=== PATIENT | male | born 1950 | race Caucasian/White ===

== ENCOUNTER → 2017-09-23 | Outpatient (CLI) | payer MEDICARE, BC ==
--- NOTE | 2017-09-23 15:30 | XR ---
EXAMINATION TYPE: XR chest 2V DATE OF EXAM: 09/23/2017 COMPARISON: NONE HISTORY: Shortness of breath TECHNIQUE: Frontal and lateral views of the chest are obtained. FINDINGS: Scattered senescent parenchymal changes noted. Hyperinflation compatible with COPD. Pacer device in p lace. Patchy basilar infiltrates noted. No evidence for atelectasis. Heart size is stable. Mediastinal structures are stable and grossly unremarkable. No evidence for hilar prominence. Degenerative changes dorsal spine. IMPRESSION: 1. Correlate for basilar pneumonia.
== END | disposition home or self-care (01) ==
LOC: RADXRMAIN 15:03
PROVIDERS: ATTEND Internal Medicine
DX: D75.1 Secondary polycythemia (principal)
CPT/HCPCS: 71046

== ENCOUNTER → 2017-10-29 | Outpatient (CLI) | payer MEDICARE, BC | END | disposition home or self-care (01) | LOC: CPPFTMAIN 14:16 | PROVIDERS: ATTEND Internal Medicine | DX: J44.9 Chronic obstructive pulmonary disease, unspecified (principal) | CPT/HCPCS: 94060; 94726; 94729 ==

== ENCOUNTER → 2021-12-13 | Outpatient (CLI) | payer MEDICARE ==
--- NOTE | 2021-12-13 19:27 | CTL ---
EXAMINATION TYPE: CT Low Dose Lung DATE OF EXAM ORDERED: 12/13/2021 HISTORY: Lung cancer screening CT DLP: 167.[address] CTDI: 4.30 mGy Automated exposure control for dose reduction was used. SCREENING VISIT: Initial COMPARISON: Chest radiograph 09/23/2017 TECHNIQUE: Low dose computed tomography scan was performed through the chest at 1 mm thick sections a nd reconstructed images in multiple planes at 1 mm and [address] DIAGNOSTIC QUALITY: Satisfactory FINDINGS: LUNG NODULES: Cavitating masses seen within the Left upper lobe with thick ybarra measuring at least 4.8 x 4.1 x 3.3 cm. Thick ybarra measuring up to 2 .1 cm. Left lower lobe 13 mm pulmonary nodule series 13 image 121 Right upper lobe demonstrates a branching tubular area of increased opacity that extends from the hil um with surrounding hyperlucent lung parenchyma LUNGS : COPD: Severity: Mild centrilobular emphysema changes. Fibrosis: Severity: None Lymph nodes: No enlarged mediastinal lymph nodes are identified. Other findings: Streaky atelectasis bases. RIGHT PLEURAL SPACE: Effusion: None Calcification: None Thickening: None Pneumothorax: None LEFT PLEURAL SPACE: Effusion: None Calcification: None Thickening: None Pneumothorax: None HEART: Heart Size: Normal Coronary Calcification: Moderate Pericardial Effusion: None OTHER FINDINGS: Upper abdomen: Postsurgical changes to the stomach and distal esophagus. Bony thorax: None Supraclavicular region: None Other: Cardiac conduction device seen with tips terminating in the right ventricle and right atrium. IMPRESSION: 1. Left upper lobe cavitating lesion suspicious for malignancy with central necrosis. Further workup is recommended. 2. Left lower lobe 13 mm pulmonary nodule. This should be further worked up with #1. 3. 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 CT LUNG RAD AND CT CHEST RECOMMENDATION: Lung-Rad 4B or 4X Very Suspicious: Follow-up Chest CT with o r without contrast or PET/CT and/or tissue sampling. PET/CT may be used when there is a > 8 mm solid component. S Modifier (other clinically significant findings): S, moderate coronary artery atherosclerosis.
== END | disposition home or self-care (01) ==
LOC: RADCTMAIN 16:03
PROVIDERS: ATTEND Internal Medicine Hematology & Oncology
DX: Z12.2 Encounter for screening for malignant neoplasm of respiratory organs (principal); I25.10 Atherosclerotic heart disease of native coronary artery without angina pectoris; Z87.891 Personal history of nicotine dependence
CPT/HCPCS: 71271

== ENCOUNTER 2021-12-28 12:51 | Day surgery (SDC) | payer MEDICARE ==
[2021-12-27 12:00] VITALS: BMI 44.1
[~2021-12-28 12:51] MED LIST: ALBUTEROL NEB (CONC) 2.5 MG/0.5 ML INHALATION ONE; LIDOCAINE 2% (PF) 20 MG/ML 5 ML VIAL INHALATION ONE; LIDOCAINE VISCOUS 300 MG/15 ML CUP MUCOUS MEM ONE; SODIUM CHLORIDE 0.9% 1,000 ML IV SCH
[2021-12-28 13:48] LABS: Glucose,Whole Blood 181 mg/dL (70-110)
[2021-12-28] MEDS ORDERED: PHENYLEPHRINE-0.9% NACL SYG 1,000 MCG/10 ML SYRINGE ONE (14:43)
[2021-12-28] MEDS ORDERED: SUCCINYLCHOLINE CHLORIDE 200 MG/10 ML VIAL IV ONE (14:43)
[2021-12-28] MEDS ORDERED: LIDOCAINE 2% INJ 20 MG/ML (2 ML VIAL) ONE (14:43)
[2021-12-28] MEDS ORDERED: MIDAZOLAM 2 MG/2 ML VIAL ONE (14:43)
[2021-12-28] MEDS ORDERED: fentaNYL (PF) 50 MCG/ML 2 ML AMP ONE (14:43)
[2021-12-28] MEDS ORDERED: ETOMIDATE 2 MG/ML 10 ML VIAL ONE (14:43)
--- NOTE | 2021-12-28 14:46 | CT ---
EXAMINATION TYPE: CT Chest conner Cm Protocol DATE OF EXAM: 12/28/2021 COMPARISON: CT 12/13/2021 HISTORY: pre-op bronch CT DLP: 1059.8 mGycm Automated exposure control for dose reduction was used. Helical imaging through the chest for procedu re planning purposes. FINDINGS: Lack of contrast could compromise sensitivity. Cavitary mass in the left upper lobe shows a pleural based margin is again noted. There are areas of probable scarring at the lingula and right upper lobe similar to prior exam. There is no pleural hector cardial effusion. Left lower lobe nodular area of increased attenuation is again seen, stable. Emphys ematous changes are again noted within the lungs, the abnormal configuration seen in the right upper lobe described in prior report shows a similar appearance. There is a generator in the left pectoral region, leads coursing to the right atrium and right ventri surya. Coronary artery calcification is present. No mediastinal, axillary, or hilar adenopathy. No evident adrenal mass. Patient is post cholecystectomy. Postop changes are noted to the stomach. 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
--- NOTE | 2021-12-28 15:50 | P.PCN ---
Date of Procedure: 12/28/21 Preoperative Diagnosis: Left hilar mass Postoperative Diagnosis: 1 left upper lobe cavitating mass 2 lingular pulmonary infiltrates Procedure(s) Performed: 1 Navigational bronchoscopy (Veran) 2 transbronchial biopsy of left upper lobe cavitating mass, transbronchial biopsy of a lingular infiltrate, transbronchial needle aspirate of a left upper lobe cavitating mass, transbronchial brushing of the left upper lobe cavitating mass, bronchioloalveolar lavage of the left upper lobe 3 endobronchial radial ultrasound Anesthesia: LARISAA Surgeon: Hair Gallego Allied [employer] Teacher #1: Ale Kirkland Estimated Blood Loss (ml): 0 Pathology: other Condition: stable Disposition: same day Operative Findings: This procedure was done under general anesthesia. There is a navigational bronchoscopy. The patient initially had a CAT scan of the chest utilizing the [facility] protocol. The images were uploaded into the software and the upper lobe mass and the lingular infiltrate identified and appropriate calibrations and mapping was done. Following that, all of this information was uploaded into the [facility] navigational tower. The patient was brought into the endoscopy suite. The patient was intubated by [employer] INSTRUCTOR. The patient had a using with Levaquin and normal 8 ET tube placed and she was secured in place. Following that, flexible bronchoscope was introduced through the orotracheal tube and an airway inspection was done. The visualized airways included the mid and the distal trachea, bilateral mainstem bronchi, right upper lobe bronchus, bronchus intermedius, right middle lobe and right lower lobe bronchus and the various 10 segments on the right. Bronchoscope was moved to the left and the visualized airways included the left mainstem bronchus was within normal limits, left upper lobe bronchus , left lower lobe bronchus, and the various 8 segments on the left and also within normal limits. There was copious amount of rest or secretions throughout the airways mainly in the left upper lobe [place] in the lingular segments. Therapeutic airway suctioning was done. Using navigational guidance, the bronchoscope was directed to the left upper lobe and under navigational guidance , transbronchial iopsies of the left upper lobe mass was done. Several biopsies were obtained. Following that transbronchial brushing of the the same lesion was done using navigational guidance. Following that, the bronchioloalveolar lavage of the upper lobe bronchus was done. A total of 80 ml of fluid was infused and approximately 20 mL of aspirate was obtained. During the process, the radial ultrasound was used and the location of the target left upper lobe mass was confirmed using ultrasound technology. Subsequently, the the bronchoscope was taken to the lingular segment and using navigational guidance transbronchial biopsies of the lingular infiltrate was done without any complications. At the completion of the procedure, therapeutic it was suctioning was done. Bronchoscope was removed and the patient was extubated and the patient was transferred to recovery in stable condition. Chest x-rays to follow.
[2021-12-28 16:00] VITALS: TEMP 97.2
--- NOTE | 2021-12-28 16:25 | XR ---
EXAMINATION TYPE: XR chest 1V DATE OF EXAM: 12/28/2021 COMPARISON: Chest CT earlier today. HISTORY: Status post bronchoscopy. TECHNIQUE: Single frontal view of the chest is obtained. FINDINGS: Persistent mild cardiomegaly with dual lead pacemaker/defibrillator. Persistent multifocal increased opacities throughout the left lung. No pneumothorax seen after bronchoscopy and sampling. O sseous structures are intact. IMPRESSION: As above.
[2021-12-28 17:05] VITALS: BP 91/55; PULSE 66; RESP 66
[2021-12-28 17:19] LABS: Glucose,Whole Blood 170 mg/dL (70-110)
[2021-12-28 23:54] LABS: Appearance,BF Cloudy
[2022-01-02 05:36] LABS: Histoplasma Abs by ID Not Detected (Not Detected); Histoplasma Abs by Mycelia, CF <1:8 (<1:8)
== END 2021-12-28 17:10 ==
LOC: ORWHC2ENDO 12:51
PROVIDERS: ATTEND Internal Medicine Critical Care Medicine
DX: R91.8 Other nonspecific abnormal finding of lung field (principal); I25.2 Old myocardial infarction; E78.5 Hyperlipidemia, unspecified; I25.10 Atherosclerotic heart disease of native coronary artery without angina pectoris; I48.91 Unspecified atrial fibrillation; J44.9 Chronic obstructive pulmonary disease, unspecified; F17.200 Nicotine dependence, unspecified, uncomplicated; I12.9 Hypertensive chronic kidney disease with stage 1 through stage 4 chronic kidney disease, or unspecified chronic kidney disease; E11.22 Type 2 diabetes mellitus with diabetic chronic kidney disease; N18.30 Chronic kidney disease, stage 3 unspecified; K21.9 Gastro-esophageal reflux disease without esophagitis; Z88.8 Allergy status to other drugs, medicaments and biological substances; Z88.5 Allergy status to narcotic agent; Z90.89 Acquired absence of other organs; Z98.890 Other specified postprocedural states; Z79.899 Other long term (current) drug therapy
CPT/HCPCS: 31629 ×2; 87798 ×3; 87496; 87498; 87529; 86606; 88104; 86698; 88305; 88173; 89050; 88312; 87252; 87502; 87634; 86635; 87070; 87205; 87116; 87102; 87206; 71045; 71250; 31625; 31623; 31624; 31627; J2250; J0330; J3010; J2370; J2001; 31633

== ENCOUNTER → 2021-12-29 | Outpatient (CLI) | payer MEDICARE ==
--- NOTE | 2021-12-30 10:51 | PE ---
EXAMINATION TYPE: PET CT fusion skull to thigh DATE OF EXAM: 12/29/2021 CLINICAL INDICATION:Male, 71 years old with history of R911; TECHNIQUE: Following the intravenous administration of 11.2 mCi of F-18 FDG, whole body images are performed from the skull base to the midthigh. Images are reviewed on the computer in the coronal, a xial, and sagittal planes. Reconstructed rotating images are created on independent workstation and reviewed on the computer. A non-contrast CT is performed in conjunction with the PET scan. Glucose level 208mg/dL COMPARISON: CT 12/28/2021, PET/CT None, FINDINGS: Evaluation slightly limited given artifact and motion. Mediastinal SUV mean is 1.8. Hepatic parenchyma SUV mean is 2.7. SKULL BASE AND NECK: No suspicious FDG activity. CHEST, MEDIASTINUM, AND HILAR REGION: * Left upper lung mass with central cavitation measures 5.4 x 4.5 cm (previously 4.7 x 4.1 cm) which is increased in size from 12/28/2021 and 12/13/2021. Max SUV 8.8. * No enlarged. The 1 cm lymph nodes or lymph nodes with increased FDG activity identified. ABDOMEN AND PELVIS: No suspicious FDG activity. OSSEOUS STRUCTURES: No suspicious FDG activity. OTHER CT: Cardiac conduction device with leads remain in the right ventricle and right atrium. The he art is mildly enlarged for size. Streaky atelectasis within the left lung not significantly changed f rom priors. The gallbladder surgically absent. The prostate is enlarged measuring up to 6.7 cm in tra nsverse dimension. There is intramuscular lipoma in the anterior right thigh compartment measuring 5. 3 x 3.2 cm. IMPRESSION: Left upper lobe cavitating mass concerning for squamous cell carcinoma until proven otherwise. No abigail dence for metastatic lymphadenopathy in this motion and artifact limited exam.
== END | disposition home or self-care (01) ==
LOC: RADPETMAIN 06:20
PROVIDERS: ATTEND Internal Medicine Hematology & Oncology
DX: R91.1 Solitary pulmonary nodule (principal)
CPT/HCPCS: 78815; A9552

== ENCOUNTER → 2022-03-09 | Outpatient (CLI) | payer MEDICARE ==
[2022-03-09 16:20] LABS: ALT 37 U/L (10-49); AST 29 U/L (14-35); African American GFR (CKD) 36.5 (60.0-200.0); Albumin 4.2 g/dL (3.8-4.9); Albumin/Globulin Ratio 1.46 (1.60-3.17); Alkaline Phosphatase 37 U/L (41-126); BUN/Creat Ratio 16.07 Ratio (12.00-20.00); Blood Urea Nitrogen 33.1 mg/dL (9.0-27.0); Calcium 9.7 mg/dL (8.7-10.3); Carbon Dioxide 23.9 mmol/L (20.0-27.5); Chloride 102 mmol/L (96-109); Globulin 2.9 g/dL (1.6-3.3); Glucose 233 mg/dL (70-110); Non-African American GFR(CKD) 31.5 (60.0-200.0); Potassium 5.6 mmol/L (3.5-5.5); Sodium 139 mmol/L (135-145); Total Protein 7.1 g/dL (6.2-8.2)
[2022-03-09 16:45] LABS: Chol/HDL Ratio 12.32 Ratio
== END | disposition home or self-care (01) ==
LOC: LABWHC1 09:20
PROVIDERS: ATTEND Internal Medicine Interventional Cardiology
DX: I48.0 Paroxysmal atrial fibrillation (principal); E78.2 Mixed hyperlipidemia; N18.9 Chronic kidney disease, unspecified
CPT/HCPCS: 36415; 80053; 80061; 83721; 84443

== ENCOUNTER → 2022-03-14 | Outpatient (CLI) | payer MEDICARE ==
--- NOTE | 2022-03-14 13:55 | CT ---
EXAMINATION TYPE: CT chest wo con DATE OF EXAM: 03/14/2022 COMPARISON: 12/29/2021, 12/29/2019 HISTORY: Abnormal finding on lung scan. CT DLP: 678.3 mGycm. Automated Exposure Control for Dose Reduction was Utilized. TECHNIQUE: CT scan of the thorax is performed without IV contrast. FINDINGS: LUNGS: Left upper lobe with thick ybarra measuring at least 4.8 x 4.1 x 3.3 cm. And is stable Thick wa lls measuring up to 2.1 cm. Left lower lobe nodule previously measured 13 mm and now measures 17 mm. Right upper lobe demonstrates a branching tubular area of increased opacity that extends from the hil um with surrounding hyperlucent lung parenchyma. There is a central lobular emphysema. No pneumothorax or pleural effusion. There are areas of bilateral subsegmental consolidation which ar e new from prior exam. Findings could be posttherapeutic or on the basis of atelectasis. MEDIASTINUM: Lack of IV contrast is noted to limit evaluation for mediastinal and especially hilar ad enopathy. There are no definitive greater than 1 cm hilar or mediastinal lymph nodes and coronary art adriano calcification is seen and there is a cardiac device with cardiac lead. Aorta normal caliber with atherosclerotic changes. Cardiomegaly extends into right ventricle. OTHER: Atrophic and degenerative changes spine. Evidence of previous cholecystectomy. Previous epigas tric surgery noted.. IMPRESSION: 1. Cavitary lesion left upper lobe measures 4.8 cm and is stable. Correlate for neoplasm. 2. There is mild incremental increase in size of the second left lower lobe pulmonary nodule previous ly measured 13 mm and now measures 17 mm. 3. There are new areas of subsegmental consolidation bilaterally felt to be most typical atelectasis. Correlate clinically to exclude a pneumonitis. There does appear to be narrowing or tapering of the segmental bronchus leading into the area of consolidation within the left perihilar region. Mucous pl ug or endobronchial lesion in the differential diagnosis.
== END | disposition home or self-care (01) ==
LOC: RADCTMAIN 12:00
PROVIDERS: ATTEND Internal Medicine Critical Care Medicine
DX: J98.4 Other disorders of lung (principal); R91.8 Other nonspecific abnormal finding of lung field
CPT/HCPCS: 36415; 71250; 82565; 84520

== ENCOUNTER → 2022-04-17 | Outpatient (CLI) | payer MEDICARE ==
[2022-04-17 14:35] LABS: Basophils # (A) 0.06 X 10*3/uL (0.00-0.10); Basophils % (A) 0.7 %; Eosinophils # (A) 0.32 X 10*3/uL (0.04-0.35); Eosinophils % (A) 3.9 %; HGB 13.5 g/dL (13.0-17.0); Lymphocytes # (A) 1.92 X 10*3/uL (0.90-5.00); Lymphocytes % (A) 23.6 %; MCH 29.2 pg (27.0-32.0); MCHC 32.1 g/dL (32.0-37.0); MCV 90.9 fL (80.0-97.0); Mean Platelet Volume 11.7 fL (9.5-12.2); Monocytes # (A) 0.84 X 10*3/uL (0.20-1.00); Monocytes % (A) 10.3 %; NRBC Per 100 WBC 0 /100 WBCS (0.0-0.0); Neutrophils # (A) 4.82 X 10*3/uL (1.80-7.70); Neutrophils % (A) 59.5 %; Platelet Count 247 X 10*3/uL (140-440); RBC 4.62 X 10*6/uL (4.40-5.60); RDW 15.5 % (11.5-14.5); WBC 8.12 X 10*3/uL (4.50-10.00)
[2022-04-17 15:10] LABS: African American GFR (CKD) 34.8 (60.0-200.0); Albumin 4.2 g/dL (3.8-4.9); Albumin/Globulin Ratio 1.49 (1.60-3.17); Anion Gap 14.6 mmol/L (10.00-18.00); BUN/Creat Ratio 14.69 Ratio (12.00-20.00); Blood Urea Nitrogen 31.3 mg/dL (9.0-27.0); Carbon Dioxide 24.8 mmol/L (20.0-27.5); Globulin 2.8 g/dL (1.6-3.3); Potassium 5.6 mmol/L (3.5-5.5); Total Bilirubin 0.3 mg/dL (0.30-1.20)
[2022-04-17 19:59] LABS: Cryptosporidium Antigen Negative (Negative)
== END | disposition home or self-care (01) ==
LOC: LABWHC1 10:00
PROVIDERS: ATTEND Internal Medicine
DX: R35.0 Frequency of micturition (principal); R19.7 Diarrhea, unspecified; Z86.39 Personal history of other endocrine, nutritional and metabolic disease
CPT/HCPCS: 36415; 80053; 82040; 84270; 84403; 85025; 87045; 87046; 87328; 87329

== ENCOUNTER → 2022-05-08 | Outpatient (CLI) | payer MEDICARE ==
--- NOTE | 2022-05-08 11:23 | CT ---
EXAMINATION TYPE: CT chest wo con CT DLP: 724.5 mGycm, Automated exposure control for dose reduction was used. DATE OF EXAM: 05/08/2022 10:58 AM COMPARISON: CT chest 03/14/2022, PET 12/29/2021 CLINICAL INDICATION:Male, 72 years old with history of R91.8 abn finding lung field, Abnormal lung fi eld. TECHNIQUE: Multiple axial images were obtained through the chest. Sagittal and coronal reformats were created for review. Contrast used: none. Oral contrast used: none. FINDINGS: LUNGS/ PLEURA: * Left upper lobe FDG avid mass has increased in size with thicker ybarra now measuring 5.7 x 4.5 x 3 .8 cm, previously 5.1 x 4.4 x 3.5 cm. * More anterior left upper lobe nodule measuring up to 12 x 10 mm may be minimally larger measuring 12 x 9 mm on prior. * Left lower lobe pulmonary nodule measuring 2.6 x 2.0 cm has increased in size, previously 2.6 x 1. 5 cm. * Right upper lobe groundglass opacities measuring 4.3 x 3.7 cm, previously 3.9 x 3.6 cm which exten ds towards the pulmonary hilum. Streaky atelectasis seen scattered throughout the lungs. No evidence focal consolidation, pneumothora x or pleural effusion. AIRWAY: Patent and unremarkable. HEART: Heart is mildly enlarged for size. Mild to moderate coronary artery atherosclerosis. MEDIASTINUM: No gross evidence of adenopathy. VASCULATURE: No aortic aneurysm. MUSCULOSKELETAL: No acute osseous abnormalities, multilevel disc degeneration changes throughout the spine. SOFT TISSUES/LYMPH NODES: Chest cardiac conduction device with bleed terminating in right ventricle a nd atrium. LOWER NECK: No significant findings. UPPER ABDOMEN: Postsurgical changes to stomach. The gallbladder surgically absent. Left renal cyst. H epatic steatosis. IMPRESSION: Increasing size of pulmonary findings compared to prior CT 03/14/2022 of left upper lobe cavitating ma ss, left upper lobe satellite pulmonary nodule, left lower lobe pulmonary nodule and right upper lobe groundglass opacities. No mediastinal lymphadenopathy at this time.
== END | disposition home or self-care (01) ==
LOC: RADCTMAIN 09:25
PROVIDERS: ATTEND Internal Medicine Critical Care Medicine
DX: R91.8 Other nonspecific abnormal finding of lung field (principal)
CPT/HCPCS: 71250

== ENCOUNTER → 2022-05-08 | Outpatient (CLI) | payer MEDICARE ==
--- NOTE | 2022-05-08 11:30 | CT ---
EXAMINATION TYPE: CT angio head neck CT DLP: 1664.3 mGycm, Automated exposure control for dose reduction was used. DATE OF EXAM: 05/08/2022 11:17 AM COMPARISON: None. 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 TECHNIQUE: Axially acquired helical CT angiogram of the head and neck was obtained with contrast. Axi al images are supplemented with 3D reconstructions which [facility] NASCET criteria used. Contrast used:65ml mL of Isovue 370 with IV Contrast, Oral contrast used: None. FINDINGS: CTA HEAD: No evidence of acute intracranial hemorrhage, mass effect, or midline shift. The ventricles, sulci, a nd cisterns are unremarkable. The visualized portions of the internal carotid arteries, middle cerebral arteries, anterior cerebral arteries, and posterior cerebral arteries are patent. Atherosclerosis of the internal carotid arteri es intracranial portion. The basilar and vertebral arteries are patent. Bilaterally aphakia. Global cerebral atrophy changes with proportional dilation of the ventricular sy stem. CTA NECK: Right Carotid System: The common carotid artery and external carotid artery are patent. The carotid bifurcation demonstrate s calcified and noncalcified plaque without hemodynamically significant stenosis. The remaining porti ons of the internal carotid artery demonstrate normal size without significant narrowing. Left Carotid System: The common carotid artery and external carotid artery are patent. The carotid bifurcation demonstrate s no evidence of hemodynamically significant stenosis. The remaining portions of the internal carotid artery demonstrate normal size without significant narrowing. Vertebral arteries are patent without evidence hemodynamically significant stenosis. There is a three-vessel aortic arch. The origins of the great vessels are patent. No evidence of hemo dynamically significant stenosis. IMPRESSION: 1. No evidence of dissection of the cervical internal carotid arteries or vertebral arteries or any e vidence of significant stenosis at the carotid bifurcations. 2. No evidence of intracranial high-grade stenosis or intracranial aneurysm. 3. See dedicated CT chest report for findings regarding the chest.
== END | disposition home or self-care (01) ==
LOC: RADCTMAIN 09:30
PROVIDERS: ATTEND Psychiatry & Neurology Neurology
DX: G45.0 Vertebro-basilar artery syndrome (principal)
CPT/HCPCS: 82565; 84520; 70496; 70498; 36415; Q9967

== ENCOUNTER → 2022-07-26 | Outpatient (CLI) | payer MEDICARE ==
[2022-07-26 15:27] LABS: Basophils # (A) 0.1 k/uL (0-0.2); Basophils % (A) 1 %; Eosinophils # (A) 0.2 k/uL (0-0.7); Eosinophils % (A) 3 %; HCT 39.9 % (39.0-53.0); HGB 13.1 gm/dL (13.0-17.5); Lymphocytes # (A) 2.1 k/uL (1.0-4.8); Lymphocytes % (A) 29 %; MCHC 32.9 g/dL (31.0-37.0); MCV 94.3 fL (80.0-100.0); Mean Platelet Volume 8.4; Monocytes # (A) 0.6 k/uL (0-1.0); Monocytes % (A) 8 %; Neutrophils # (A) 4.2 k/uL (1.3-7.7); Neutrophils % (A) 57 %; Platelet Count 334 k/uL (150-450); RBC 4.23 m/uL (4.30-5.90); RDW 15.4 % (11.5-15.5); WBC 7.4 k/uL (3.8-10.6)
[2022-07-26 16:57] LABS: RBC Morphology Normal
[2022-07-26 23:05] LABS: Protein, Total 7.1 g/dL (6.2-8.2)
[2022-07-26 23:24] LABS: Hepatitis A Antibody IgM Nonreactive (Nonreactive); Hepatitis B Core IgM Nonreactive (Nonreactive); Hepatitis B Surface Antigen Nonreactive (Nonreactive); Hepatitis C IgG Antibody Nonreactive (Nonreactive)
[2022-07-26 23:48] LABS: ALT 31 U/L (10-49); AST 22 U/L (14-35); African American GFR (CKD) 35.2 (60.0-200.0); Albumin 4.3 g/dL (3.8-4.9); Albumin/Globulin Ratio 1.46 (1.60-3.17); Alkaline Phosphatase 38 U/L (41-126); BUN/Creat Ratio 21.99 Ratio (12.00-20.00); Blood Urea Nitrogen 46.4 mg/dL (9.0-27.0); Calcium 10.1 mg/dL (8.7-10.3); Carbon Dioxide 19.3 mmol/L (20.0-27.5); Chloride 103 mmol/L (96-109); Glucose 177 mg/dL (70-110); Potassium 6.4 mmol/L (3.5-5.5); Sodium 135 mmol/L (135-145); Total Protein 7.3 g/dL (6.2-8.2)
[2022-07-27 00:06] LABS: HIV 2 AB Non-Reactive (Non-Reactive); HIV AB P24 Non-Reactive (Non-Reactive); HIV P24 AG Non-Reactive (Non-Reactive)
[2022-07-27 00:53] LABS: Non-African American GFR(CKD) 30.4 (60.0-200.0)
[2022-07-27 13:31] LABS: Albumin 4.03 g/dL (3.80-4.90); Gamma Globulin 0.92 g/dL (0.70-1.50)
== END | disposition home or self-care (01) ==
LOC: LABWHC1 13:56
PROVIDERS: ATTEND Internal Medicine
DX: R23.2 Flushing (principal)
CPT/HCPCS: 36415; 80053; 80074; 82533; 84165; 84443; 85025; 86038; 87390

== ENCOUNTER 2022-07-27 09:54 | Observation (INO) | payer MEDICARE ==
[2022-07-27 10:47] LABS: Basophils % (A) 1 %; Eosinophils # (A) 0.3 k/uL (0-0.7); Eosinophils % (A) 5 %; HCT 38.3 % (39.0-53.0); HGB 12.8 gm/dL (13.0-17.5); Lymphocytes # (A) 1.9 k/uL (1.0-4.8); Lymphocytes % (A) 31 %; MCH 31.2 pg (25.0-35.0); MCHC 33.3 g/dL (31.0-37.0); MCV 93.8 fL (80.0-100.0); Mean Platelet Volume 7.4; Monocytes # (A) 0.5 k/uL (0-1.0); Monocytes % (A) 8 %; Neutrophils # (A) 3.4 k/uL (1.3-7.7); Neutrophils % (A) 54 %; Platelet Count 283 k/uL (150-450); RBC 4.09 m/uL (4.30-5.90); RDW 15.4 % (11.5-15.5); WBC 6.3 k/uL (3.8-10.6)
--- NOTE | 2022-07-27 10:55 | ED ---
General Adult HPI - General Chief complaint: Recheck/Abnormal Lab/Rx Stated complaint: abn labs Time Seen by Provider: 07/27/22 10:05 Source: patient Mode of arrival: ambulatory Limitations: no limitations - History of Present Illness Initial comments: 72-year-old male with past history of A. fib, coronary artery disease, COPD, diabetes who presents to the emergency department for abnormal labs. He was seen in Dr. Hargrove office earlier this week. He reports to hot flashes and therefore he was having some of his medications adjusted. He was being switched from venlafaxine to paroxetine but his primary care doctor wanted laboratory studies performed prior to switching. Labs were drawn yesterday. 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 He denies having any symptoms. No chest pain or shortness of breath. No nausea or vomiting. He takes spironolactone but no other diuretics. Has a history of chronic kidney disease. No other alleviating, precipitating or modifying factors - Related Data Home Medications Medication Instructions Recorded Confirmed Atorvastatin [Lipitor] 40 mg PO HS 09/19/15 07/27/22 Fenofibric Acid (Choline) 135 mg PO DAILY 09/19/15 07/27/22 [Trilipix] Metoprolol Tartrate [Lopressor] 100 mg PO AC-BID 09/19/15 07/27/22 Niacin [Niaspan] 1,000 mg PO HS 09/19/15 07/27/22 Nitroglycerin Sl Tabs [Nitrostat] 0.4 mg SUBLINGUAL Q5M PRN 09/19/15 07/27/22 Tamsulosin [Flomax] 0.4 mg PO PC-LUNCH 09/19/15 07/27/22 Apixaban [Eliquis] 5 mg PO AC-BID 12/27/21 07/27/22 Omeprazole 40 mg PO AC-SUPPER 12/27/21 07/27/22 hydrALAZINE HCL 25 mg PO AC-BID 12/27/21 07/27/22 metFORMIN HCL [Glucophage] 500 mg PO AC-BID 12/27/21 07/27/22 Dulaglutide [Trulicity] 0.75 mg SQ WE 07/03/22 07/27/22 PARoxetine HCL [Paxil] 10 mg PO HS 07/27/22 07/27/22 amLODIPine [Norvasc] 5 mg PO DAILY 07/27/22 07/27/22 Previous Rx's Medication Instructions Recorded Sodium Bicarbonate Tab 650 mg PO BID 30 Days #60 tab 07/28/22 Allergies Allergy/AdvReac Type Severity Reaction Status Date / Time latex Allergy red skin Verified 07/27/22 10:44 morphine AdvReac Nausea Verified 07/27/22 10:44 pregabalin [From Lyrica] AdvReac Hallucinati Verified 07/27/22 10:44 ons Review of Systems ROS Statement: Those systems with pertinent positive or pertinent negative responses have been documented in the HPI. ROS Other: All systems not noted in ROS Statement are negative. Past Medical History Past Medical History: Atrial Fibrillation, Blood Disorder, Coronary Artery Disease (CAD), Chest Pain / Angina, COPD, Diabetes Mellitus, GERD/Reflux, Hearing Disorder / Deafness, Hyperlipidemia, Hypertension, Myocardial Infarction ([place]), Osteoarthritis (OA), Prostate Disorder, Renal Disease, Skin Disorder Additional Past Medical History / Comment(s): Small right lung mass, large left lung mass. "Too many red blood cells, have had to have a pint of blood removed about 8 times to get rid of them, managed by Dr Michael." Hiatal hernia, hx gout, stucco keratosis, vertigo, enlarged prostate, stage 3 kidney disease, 3 herniated and 2 bulging discs in lower lumbar, hearing aid use, 6 polyps colon removed. lung mass negative on bronch. Last Myocardial Infarction Date:: 02/26/1995 History of Any Multi-Drug Resistant Organisms: None Reported Past Surgical History: AICD, Appendectomy, Bariatric Surgery, Cholecystectomy, Heart Catheterization With Stent, Orthopedic Surgery, Tonsillectomy Additional Past Surgical History / Comment(s): Left ankle surgery, "stomach stapling/removed 12 yrs later", cardioversion, hemorrhoidectomy, bilateral catrtacts removed, bronchscopy Additional Past Anesthesia/Blood Transfusion Reaction / Comment(s): "I try to take things out when I am waking up." Date of Last Stent Placement:: 02/21/2001 Type of Cardiac Device: AICD Device Placement Date:: 05/27 replaced Past Psychological History: No Psychological Hx Reported Smoking Status: Former smoker, Vaper Past Alcohol Use History: Rare Past Drug Use History: None Reported - Past Family History Mother Family Medical History: No Reported History General Exam Limitations: no limitations General appearance: alert, in no apparent distress, obese Head exam: Present: atraumatic, normocephalic, normal inspection Eye exam: Present: normal appearance, PERRL, EOMI. Absent: scleral icterus, conjunctival injection, periorbital swelling ENT exam: Present: normal exam, mucous membranes moist Neck exam: Present: normal inspection. Absent: tenderness, meningismus, lymphadenopathy Respiratory exam: Present: normal lung sounds bilaterally. Absent: respiratory distress, wheezes, rales, rhonchi, stridor Cardiovascular Exam: Present: regular rate, normal rhythm, normal heart sounds. Absent: systolic murmur, diastolic murmur, rubs, gallop, clicks GI/Abdominal exam: Present: soft, normal bowel sounds. Absent: distended, tenderness, guarding, rebound, rigid Extremities exam: Present: normal inspection, full ROM, normal capillary refill. Absent: tenderness, pedal edema, joint swelling, calf tenderness Back exam: Present: normal inspection Neurological exam: Present: alert, oriented X3, CN II-XII intact Psychiatric exam: Present: normal affect, normal mood Skin exam: Present: warm, dry, intact, normal color. Absent: rash Course Vital Signs 07/27/22 07/27/22 07/27/22 10:01 11:51 12:23 Temperature 97.4 F L 97.8 F Pulse Rate 83 66 66 Respiratory 20 18 20 Rate Blood Pressure 124/70 110/86 109/61 O2 Sat by Pulse 99 97 99 Oximetry EKG Findings - EKG Comments: EKG Findings:: EKG demonstrates a sinus rhythm with a rate of 73. CO 193. Stress 142. QTC 436. Mild ST depression [address] elevation in lead 3. Medical Decision Making - Medical Decision Making Was pt. sent in by a medical professional or institution (, PA, COMMUNICATIONS ENGINEERING TECHNICIAN, urgent care, hospital, or half-way...) When possible be specific @ - office Did you speak to anyone other than the patient for history (EMS, parent, family, police, friend...)? What history was obtained from this source @ -No Did you review nursing and triage notes (agree or disagree)? Why? @ -I reviewed and agree with nursing and triage notes Were old charts reviewed (outside hosp., previous admission, EMS record, old EKG, old radiological studies, urgent care reports/EKG's, half-way records)? Report findings @ -Yes Differential Diagnosis (chest pain, altered mental status, abdominal pain women, abdominal pain men, vaginal bleeding, weakness, fever, dyspnea, syncope, headache, dizziness, GI bleed, back pain, seizure, CVA, palpatations, mental h ealth, musculoskeletal)? @ -lab error, trish, dehydration EKG interpreted by me (3pts min.). @ -Yes X-rays interpreted by me (1pt min.). @ -No CT interpreted by me (1pt min.). @ -None done U/S interpreted by me (1pt. min.). @ -None done What testing was considered but not performed or refused? (CT, X-rays, U/S, labs)? Why? @ -None What meds were considered but not given or refused? Why? @ -None Did you discuss the management of the patient with other professionals (professionals i.e. , PA, COMMUNICATIONS ENGINEERING TECHNICIAN, lab, RT, psych nurse, social sciences instructor, chemical engineer, teacher, homicide squad commanding officer, patient case coordinator)? Give summary @ -Admitting physician Was smoking cessation discussed for >3mins.? @ -No Was critical care preformed (if so, how long)? @ -Yes, 35 minutes Were there social determinants of health that impacted care today? How? (Homelessness, low income, unemployed, alcoholism, drug addiction, transportation, low edu. Level, literacy, decrease access to med. care, retirement, rehab)? @ -No Was there de-escalation of care discussed even if they declined (Discuss DNR or withdrawal of care, Hospice)? DNR status @ -No What co-morbidities impacted this encounter? (DM, HTN, Smoking, COPD, CAD, Cancer, CVA, ARF, Chemo, Hep., AIDS, mental health diagnosis, sleep apnea, morbid obesity)? @ -CKD, CHF, DM Was patient admitted / discharged? Hospital course, mention meds given and route, prescriptions, significant lab abnormalities, going to OR and other pertinent info. @ -Upon arrival patient was placed into room 11. History and physical exam was performed. I did repeat patient's labs which do demonstrate a potassium of 6.0. He was given half amp of dextrose and 10 units of insulin. He is also started on lactated Ringer's at 100 mL per hour. Nephrotoxic agents will be held at this time. We will admit for repeat potassium draw. Spoke with Dr. Knutson who agreed to admit the patient Undiagnosed new problem with uncertain prognosis? @ -yes Drug Therapy requiring intensive monitoring for toxicity (Heparin, Nitro, Insulin, Cardizem)? @ -Yes, insulin iv Were any procedures done? @ -No Diagnosis/symptom? @ -acute hyperkalemia Acute, or Chronic, or Acute on Chronic? @ -acute Uncomplicated (without systemic symptoms) or Complicated (systemic symptoms)? @ -complicated Side effects of treatment? @ -Hypoglycemia Exacerbation, Progression, or Severe Exacerbation? @ -No Poses a threat to life or bodily function? How? (Chest pain, USA, ME, pneumonia, PE, COPD, DKA, ARF, appy, cholecystitis, CVA, Diverticulitis, Homicidal, Suicidal, threat to staff... and all critical care pts) @ -Yes - Lab Data Result diagrams: 07/28/22 05:10 07/28/22 12:13 Lab Results 07/27/22 07/27/22 Range/Units 10:20 10:20 WBC 6.3 (3.8-10.6) k/uL RBC 4.09 L (4.30-5.90) m/uL Hgb 12.8 L (13.0-17.5) gm/dL Hct 38.3 L (39.0-53.0) % MCV 93.8 (80.0-100.0) fL MCH 31.2 (25.0-35.0) pg MCHC 33.3 (31.0-37.0) g/dL RDW 15.4 (11.5-15.5) % Plt Count 283 (150-450) k/uL MPV 7.4 Neutrophils % 54 % Lymphocytes % 31 % Monocytes % 8 % Eosinophils % 5 % Basophils % 1 % Neutrophils # 3.4 (1.3-7.7) k/uL Lymphocytes # 1.9 (1.0-4.8) k/uL Monocytes # 0.5 (0-1.0) k/uL Eosinophils # 0.3 (0-0.7) k/uL Basophils # 0.0 (0-0.2) k/uL Sodium 137 (137-145) mmol/L Potassium 6.0 H (3.5-5.1) mmol/L Chloride 107 (98-107) mmol/L Carbon Dioxide 18 L (22-30) mmol/L Anion Gap 12 mmol/L BUN 42 H (9-20) mg/dL Creatinine 2.12 H (0.66-1.25) mg/dL Est GFR (CKD-EPI)AfAm 35 (>60 ml/min/1.73 sqM) Est GFR (CKD-EPI)NonAf 30 (>60 ml/min/1.73 sqM) Glucose 187 H (74-99) mg/dL Calcium 9.6 (8.4-10.2) mg/dL Phosphorus 3.6 (2.5-4.5) mg/dL Magnesium 1.7 (1.6-2.3) mg/dL Total Bilirubin 0.6 (0.2-1.3) mg/dL AST 28 (17-59) U/L ALT 32 (4-49) U/L Alkaline Phosphatase 40 (38-126) U/L Total Protein 7.2 (6.3-8.2) g/dL Albumin 4.2 (3.5-5.0) g/dL Critical Care Time Critical Care Time: Yes Critical Care Time: 35 minutes Disposition Clinical Impression: Hyperkalemia, CKD (chronic kidney disease) Disposition: ADMITTED IP TO THIS [facility] Condition: Stable Is patient prescribed a controlled substance at d/c from ED?: No Time of Disposition: 11:23 Decision to Admit Reason: Admit from EC Decision Date: 07/27/22 Decision Time: 11:23
[2022-07-27 10:56] LABS: Albumin 4.2 g/dL (3.5-5.0); Calcium 9.6 mg/dL (8.4-10.2); Magnesium 1.7 mg/dL (1.6-2.3); Phosphorus 3.6 mg/dL (2.5-4.5); Total Bilirubin 0.6 mg/dL (0.2-1.3); Total Protein 7.2 g/dL (6.3-8.2)
[2022-07-27] MEDS ORDERED: SODIUM CHLORIDE 0.9% 1,000 ML IV SCH (11:00)
[2022-07-27] MEDS ORDERED: DEXTROSE 50% SYRINGE 50 ML IVP STA ×3 (11:15→22:56)
[2022-07-27] MEDS ORDERED: INSULIN REGULAR 100 UNIT/ML VIAL (IV) IV ONE ×3 (11:15→22:57)
[2022-07-27] MEDS ORDERED: LACTATED RINGERS 1,000 ML IV ONE (11:18)
[2022-07-27] MEDS ORDERED: NALOXONE 0.4 MG/ML 1 ML VIAL IV PRN (11:23)
[2022-07-27] MEDS ORDERED: SODIUM ZIRCONIUM CYCLOSILICATE 10 GM PACKET PO ONE ×3 (11:30→22:58)
[2022-07-27] MEDS ORDERED: NITROGLYCERIN SL TABS 0.4 MG TAB SUBLINGUAL PRN (12:45)
--- NOTE | 2022-07-27 12:47 | P.HPIM ---
History of Present Illness H&P Date: 07/27/22 History of Presenting Illness: Patient is a very pleasant 72-year-old male with a past medical history of CAD status post stenting 1, atrial fibrillation on anticoagulation with Eliquis, hypertension, hyperlipidemia, type II [id number] diabetes mellitus, BPH, and stage IV chronic kidney disease. He presented to the emergency department with a chief complaint of intermittent dizziness with abnormal labs. Patient reports intermittent dizziness with ambulation and looking up x one year. He states that he underwent a full workup by neurologist and data operations leader and nearly everything has been ruled out. Patient states that he does follow rosemary osorio with a materials planner back in [place] but it has been one year since he has been seen by them. Patient reports he went to his PCPs office because he has been experiencing more frequent intermittent episodes of dizziness over the past year despite no one finding a diagnosis or treatment. Patient states he underwent a full workup complete with labs. He states he changed one of his medications and sent him back home. Patient states that today he received a phone call from his primary care doctor and instructed he needed to go straight to the emergency department because his potassium was too high. Patient currently reports he is feeling great. He is sitting in the chair and currently denies having any dizziness, lightheadedness, changes in vision or hearing, chest pain, palpitations, shortness of breath, nausea, vomiting, or experiencing any numbness/tingling/weakness/swelling in his extremities. Patient underwent full evaluation in the emergency department. Labs completed and reviewed. CBC showing normocytic anemia with hemoglobin of 12.8. BMP showing hyperkalemia with potassium of 6.0, hypocarbia with bicarb of 18, and elevated renal function consistent with stage IV CKD with BUN of 42, creatinine 2.12, and GFR of 30 (baseline creatinine appears to be 2). Magnesium also slightly low at 1.7. In the emergency department patient was given hyperkalemia cocktail consisting of regular insulin 10 units IVP, 1 amp D50, and Lokelma. EKG completed showing normal sinus rhythm at 73 bpm with T-wave inversion in leads I and aVL upon personal review and interpretation. Discussed patient's case, laboratory findings and EKG in depth with ED physician. Patient is being admitted under our services to observation unit with telemetry with consultation to nephrology. Physical exam: Vital signs reviewed and stable. General: Nontoxic, no distress and appears stated age. Derm: Skin warm and dry, normal coloration for ethnicity. Head: Atraumatic, normocephalic and symmetric. Eyes: EOMs intact, no lid lag, and anicteric sclera Mouth: no lip lesions, mucus membranes moist Cardiovascular: regular rate and rhythm with normal S1S2, no murmur, positive posterior tibial pulses bilaterally, and cap refill < 2 seconds. Lungs: Respirations even, regular, and unlabored on room air. Lungs CTA bilaterally, no rhonchi, no rales, no wheezing, and no accessory muscle usage. Abdominal: soft, nontender to palpation, no guarding, no appreciable organomegaly Ext: ROM intact. No gross muscle atrophy, no edema, no contractures Neuro: Speech clear, face symmetrical and CN II-XII grossly intact with no noted focal neuro deficits Psych: Alert and oriented to person, place, time, and situation. Appropriate and pleasant affect. Assessment and Plan of Care: Hyperkalemia Stage IV chronic kidney disease Metabolic alkalosis Hypomagnesemia -Labs completed and reviewed. CBC showing normocytic anemia with hemoglobin of 12.8. BMP showing hyperkalemia with potassium of 6.0, metabolic alkalosis with bicarb of 18, chloride 107, and anion gap of 12, and elevated renal function consistent with stage IV CKD with BUN of 42, creatinine 2.12, and GFR of 30 (baseline creatinine appears to be 2). Magnesium also slightly low at 1.7. -In the emergency department patient was given hyperkalemia cocktail consisting of regular insulin 10 units IVP, 1 amp D50, and Lokelma. -EKG completed showing normal sinus rhythm at 73 bpm with T-wave inversion in leads I and aVL upon personal review and interpretation. -Discussed patient's case, laboratory findings and EKG in depth with ED physician. -Patient is being admitted under our services to observation unit with telemetry with consultation to nephrology. -Repeat potassium to be completed at 4 PM to follow-up on hyperkalemia. -Patient given Mag-Ox 400 milligrams 1 dose for treatment of hypomagnesemia. -Patient started on sodium bicarb 650 mg twice a day secondary to CKD and metabolic alkalosis with bicarbonate of 18. -Order placed for morning BMP, CBC, magnesium, and phosphorus. -Patient currently taking Aldactone and lisinopril at home when he has known CKD stage IV, these medications are discontinued at this time. CAD status post stenting 1 Atrial fibrillation on anticoagulation with Eliquis Hypertension Hyperlipidemia -Patient currently taking Aldactone and lisinopril at home when he has known CKD stage IV, these medications are discontinued at this time secondary to chronic kidney disease and hyperkalemia. -Patient to continue home cardiac medication regimen with Eliquis, amlodipine, atorvastatin, fenofibrate, hydralazine, and metoprolol. Type II [id number] diabetes mellitus with hyperglycemia -Blood glucose currently 187. Hold Glucophage and place patient on glycemic protocol with NovoLog sliding scale. BPH -Continue home medication regimen with Flomax 0.4 mg daily. The patient is admitted with an anticipated less than 2 midnight stay for evaluation of hyperkalemia CODE STATUS: Full code DVT prophylaxis: Eliquis Discussed with: Patient, RN, and ED provider Anticipated discharge date: Likely within the next 24-[address]: Home Patient was seen independently by Nurse Practitioner. This document was prepared using [employer] dictation software. Please allow for errors in day care home provider while rare they do occur. Martir Olivares NP rendered care for this patient independently, reviewed the findings and plan as documented in the note above. I did not physically speak with or examine the patient on this date. Past Medical History Past Medical History: Atrial Fibrillation, Blood Disorder, Coronary Artery Disease (CAD), Chest Pain / Angina, COPD, Diabetes Mellitus, GERD/Reflux, Hearing Disorder / Deafness, Hyperlipidemia, Hypertension, Myocardial Infarction ([place]), Osteoarthritis (OA), Prostate Disorder, Renal Disease, Skin Disorder Additional Past Medical History / Comment(s): Small right lung mass, large left lung mass. "Too many red blood cells, have had to have a pint of blood removed about 8 times to get rid of them, managed by Dr Michael." Hiatal hernia, hx gout, stucco keratosis, vertigo, enlarged prostate, stage 3 kidney disease, 3 herniated and 2 bulging discs in lower lumbar, hearing aid use, 6 polyps colon removed. lung mass negative on bronch. Last Myocardial Infarction Date:: 02/26/1995 History of Any Multi-Drug Resistant Organisms: None Reported Past Surgical History: AICD, Appendectomy, Bariatric Surgery, Cholecystectomy, Heart Catheterization With Stent, Orthopedic Surgery, Tonsillectomy Additional Past Surgical History / Comment(s): Left ankle surgery, "stomach stapling/removed 12 yrs later", cardioversion, hemorrhoidectomy, bilateral catrtacts removed, bronchscopy Additional Past Anesthesia/Blood Transfusion Reaction / Comment(s): "I try to take things out when I am waking up." Date of Last Stent Placement:: 02/21/2001 Type of Cardiac Device: AICD Device Placement Date:: 05/27 Past Psychological History: No Psychological Hx Reported Smoking Status: Former smoker, Vaper Past Alcohol Use History: Rare Past Drug Use History: None Reported - Past Family History Mother Family Medical History: No Reported History Medications and Allergies Home Medications Medication Instructions Recorded Confirmed Type Atorvastatin [Lipitor] 40 mg PO HS 09/19/15 07/27/22 History Fenofibric Acid (Choline) 135 mg PO DAILY 09/19/15 07/27/22 History [Trilipix] Metoprolol Tartrate [Lopressor] 100 mg PO AC-BID 09/19/15 07/27/22 History Niacin [Niaspan] 1,000 mg PO HS 09/19/15 07/27/22 History Nitroglycerin Sl Tabs [Nitrostat] 0.4 mg SUBLINGUAL Q5M PRN 09/19/15 07/27/22 History Tamsulosin [Flomax] 0.4 mg PO PC-LUNCH 09/19/15 07/27/22 History Apixaban [Eliquis] 5 mg PO AC-BID 12/27/21 07/27/22 History Omeprazole 40 mg PO AC-SUPPER 12/27/21 07/27/22 History hydrALAZINE HCL 25 mg PO AC-BID 12/27/21 07/27/22 History metFORMIN HCL [Glucophage] 500 mg PO AC-BID 12/27/21 07/27/22 History Dulaglutide [Trulicity] 0.75 mg SQ WE 07/03/22 07/27/22 History PARoxetine HCL [Paxil] 10 mg PO HS 07/27/22 07/27/22 History amLODIPine [Norvasc] 5 mg PO DAILY 07/27/22 07/27/22 History Sodium Bicarbonate Tab 650 mg PO BID 30 Days #60 tab 07/28/22 Rx Allergies Allergy/AdvReac Type Severity Reaction Status Date / Time latex Allergy red skin Verified 07/27/22 10:44 morphine AdvReac Nausea Verified 07/27/22 10:44 pregabalin [From Lyrica] AdvReac Hallucinati Verified 07/27/22 10:44 ons Physical Exam Vitals: Vital Signs Temp Pulse Resp BP Pulse Ox 07/27/22 11:51 66 18 110/86 97 07/27/22 10:01 97.4 F L 83 20 124/70 99 Intake and Output 07/26/22 07/27/22 07/27/22 22:59 06:59 14:59 Other: Weight 142.882 kg Results CBC & Chem 7: 07/28/22 05:10 07/28/22 12:13 Labs: Abnormal Lab Results - Last 24 Hours (Table) 07/27/22 07/27/22 Range/Units 10:20 10:20 RBC 4.09 L (4.30-5.90) m/uL Hgb 12.8 L (13.0-17.5) gm/dL Hct 38.3 L (39.0-53.0) % Potassium 6.0 H (3.5-5.1) mmol/L Carbon Dioxide 18 L (22-30) mmol/L BUN 42 H (9-20) mg/dL Creatinine 2.12 H (0.66-1.25) mg/dL Glucose 187 H (74-99) mg/dL
[2022-07-27] MEDS ORDERED: TAMSULOSIN 0.4 MG CAP.ER.24H PO STA (14:35)
[2022-07-27] MEDS: TAMSULOSIN 0.4 MG CAP.ER.24H PO SCH ×2 (14:35→14:37)
[2022-07-27] MEDS ORDERED: MAGNESIUM OXIDE 400 MG TAB PO STA (16:12)
[2022-07-27 16:27] LABS: African American GFR (CKD) 33 (>60 ml/min/1.73 sqM); Anion Gap 11 mmol/L; Blood Urea Nitrogen 39 mg/dL (9-20); Calcium 9.3 mg/dL (8.4-10.2); Carbon Dioxide 19 mmol/L (22-30); Chloride 106 mmol/L (98-107); Glucose 168 mg/dL (74-99); Non-African American GFR(CKD) 29 (>60 ml/min/1.73 sqM); Sodium 136 mmol/L (137-145)
[2022-07-27] MEDS ORDERED: DEXTROSE 50% SYRINGE 50 ML IVP PRN ×2 (16:27)
[2022-07-27 16:30] LABS: Potassium 5.9 mmol/L (3.5-5.1)
[2022-07-27 17:23] LABS: Glucose,Whole Blood 208 mg/dL (70-110)
[2022-07-27] MEDS: hydrALAZINE HCL 25 MG TAB PO SCH (17:23)
[2022-07-27] MEDS: METOPROLOL TARTRATE 50 MG TAB PO SCH (17:23)
[2022-07-27] MEDS ORDERED: PANTOPRAZOLE 40 MG TABLET PO SCH (17:30)
[2022-07-27] MEDS ORDERED: SODIUM BICARB 8.4% 50 ML SYR (1 MEQ/ML) IV STA (17:37)
[2022-07-27] MEDS: INSULIN ASPART (NovoLOG) 100 UNIT/ML VIAL SQ SCH ×2 (18:17→20:17)
[2022-07-27] MEDS: APIXABAN 5 MG TAB PO SCH (18:18)
[2022-07-27] MEDS: SODIUM CHLORIDE 0.9% 1,000 ML IV SCH (18:37)
[2022-07-27 20:05] LABS: Glucose,Whole Blood 164 mg/dL (70-110)
[2022-07-27] MEDS ORDERED: PARoxetine 10 MG TAB PO SCH (21:00)
[2022-07-27] MEDS ORDERED: ATORVASTATIN 40 MG TAB PO SCH (21:00)
[2022-07-27] MEDS: SODIUM BICARBONATE TAB 650 MG TAB PO SCH (21:15)
[2022-07-27] MEDS ORDERED: CALCIUM GLUCONATE IN NACL 1 GM in SALINE 1 100ML.BAG IVPB ONE (23:05)
[2022-07-28] MEDS: INSULIN ASPART (NovoLOG) 100 UNIT/ML VIAL SQ SCH ×2 (05:16→13:50)
[2022-07-28 05:18] LABS: Glucose,Whole Blood 124 mg/dL (70-110)
[2022-07-28] MEDS: SODIUM BICARBONATE TAB 650 MG TAB PO SCH (08:45)
[2022-07-28] MEDS: METOPROLOL TARTRATE 50 MG TAB PO SCH (08:45)
[2022-07-28] MEDS: APIXABAN 5 MG TAB PO SCH (08:45)
[2022-07-28] MEDS: hydrALAZINE HCL 25 MG TAB PO SCH (08:45)
[2022-07-28 08:59] VITALS: RESP 18; TEMP 97.3
[2022-07-28] MEDS ORDERED: amLODIPine 5 MG TAB PO SCH (09:00)
[2022-07-28] MEDS ORDERED: FENOFIBRATE 160 MG TAB PO SCH (09:00)
[2022-07-28 09:20] LABS: Basophils # (A) 0.03 X 10*3/uL (0.00-0.10); Basophils % (A) 0.4 %; Eosinophils # (A) 0.27 X 10*3/uL (0.04-0.35); Eosinophils % (A) 3.7 %; HCT 34.1 % (39.6-50.0); HGB 11.1 g/dL (13.0-17.0); Immature Grans, Automated 1.1 %; Lymphocytes # (A) 2.22 X 10*3/uL (0.90-5.00); Lymphocytes % (A) 30.6 %; MCHC 32.6 g/dL (32.0-37.0); MCV 95.3 fL (80.0-97.0); Monocytes # (A) 0.98 X 10*3/uL (0.20-1.00); Monocytes % (A) 13.5 %; NRBC Per 100 WBC 0 /100 WBCS (0.0-0.0); Neutrophils # (A) 3.67 X 10*3/uL (1.80-7.70); Neutrophils % (A) 50.7 %; Platelet Count 198 X 10*3/uL (140-440); RBC 3.58 X 10*6/uL (4.40-5.60); RDW 15.7 % (11.5-14.5); WBC 7.25 X 10*3/uL (4.50-10.00)
[2022-07-28 09:53] LABS: Magnesium 1.9 mg/dL (1.5-2.4); Phosphorus 3.5 mg/dL (2.4-5.1)
[2022-07-28 09:54] LABS: African American GFR (CKD) 37.5 (60.0-200.0); Anion Gap 8.7 mmol/L (10.00-18.00); BUN/Creat Ratio 19.4 Ratio (12.00-20.00); Blood Urea Nitrogen 38.8 mg/dL (9.0-27.0); Calcium 9.4 mg/dL (8.7-10.3); Carbon Dioxide 21.3 mmol/L (20.0-27.5); Non-African American GFR(CKD) 32.4 (60.0-200.0)
[2022-07-28 12:55] LABS: Glucose,Whole Blood 113 mg/dL (70-110)
--- NOTE | 2022-07-28 13:37 | P.NPCON ---
History of Present Illness - Reason for Consult hyperkalemia - History of Present Illness Patient is a 72-year-old male with history of chronic kidney disease NKF stage III. Patient states he had seen a leather splitter out of state in [place] about a year ago but has not followed since then. Serum creatinine appears to be around 2 since March 2022. Patient was admitted to the hospital due to abnormal labs. Potassium was 6 and increased to 6.9 last night. Status post IV treatment. Potassium this morning was 5.1. Patient denies any significant urinary symptoms He denies use of any nonsteroidal anti-inflammatory agents Patient is maintained on lisinopril and Aldactone at home which is currently on hold. No evidence of urine retention on bladder scan. Review of Systems As per HPI Past Medical History Past Medical History: Atrial Fibrillation, Blood Disorder, Coronary Artery Disease (CAD), Chest Pain / Angina, COPD, Diabetes Mellitus, GERD/Reflux, Hearing Disorder / Deafness, Hyperlipidemia, Hypertension, Myocardial Infarction ([place]), Osteoarthritis (OA), Prostate Disorder, Renal Disease, Skin Disorder Additional Past Medical History / Comment(s): Small right lung mass, large left lung mass. "Too many red blood cells, have had to have a pint of blood removed about 8 times to get rid of them, managed by Dr Michael." Hiatal hernia, hx gout, stucco keratosis, vertigo, enlarged prostate, stage 3 kidney disease, 3 herniated and 2 bulging discs in lower lumbar, hearing aid use, 6 polyps colon removed. lung mass negative on bronch. Last Myocardial Infarction Date:: 02/26/1995 History of Any Multi-Drug Resistant Organisms: None Reported Past Surgical History: AICD, Appendectomy, Bariatric Surgery, Cholecystectomy, Heart Catheterization With Stent, Orthopedic Surgery, Tonsillectomy Additional Past Surgical History / Comment(s): Left ankle surgery, "stomach stapling/removed 12 yrs later", cardioversion, hemorrhoidectomy, bilateral catrtacts removed, bronchscopy Additional Past Anesthesia/Blood Transfusion Reaction / Comment(s): "I try to take things out when I am waking up." Date of Last Stent Placement:: 02/21/2001 Type of Cardiac Device: AICD Device Placement Date:: 05/27 replaced Past Psychological History: No Psychological Hx Reported Smoking Status: Former smoker, Vaper Past Alcohol Use History: Rare Past Drug Use History: None Reported - Past Family History Mother Family Medical History: No Reported History Medications and Allergies Home Medications Medication Instructions Recorded Confirmed Type Atorvastatin [Lipitor] 40 mg PO HS 09/19/15 07/27/22 History Fenofibric Acid (Choline) 135 mg PO DAILY 09/19/15 07/27/22 History [Trilipix] Metoprolol Tartrate [Lopressor] 100 mg PO AC-BID 09/19/15 07/27/22 History Niacin [Niacin ER] 1,000 mg PO HS 09/19/15 07/27/22 History Nitroglycerin Sl Tabs [Nitrostat] 0.4 mg SUBLINGUAL Q5M PRN 09/19/15 07/27/22 History Tamsulosin [Flomax] 0.4 mg PO PC-LUNCH 09/19/15 07/27/22 History lisinopriL 40 mg PO DAILY 09/19/15 07/27/22 History Apixaban [Eliquis] 5 mg PO AC-BID 12/27/21 07/27/22 History Omeprazole 40 mg PO AC-SUPPER 12/27/21 07/27/22 History Spironolactone 25 mg PO DAILY 12/27/21 07/27/22 History hydrALAZINE HCL 25 mg PO AC-BID 12/27/21 07/27/22 History metFORMIN HCL [Glucophage] 500 mg PO AC-BID 12/27/21 07/27/22 History Dulaglutide [Trulicity] 0.75 mg SQ WE 07/03/22 07/27/22 History PARoxetine HCL [Paxil] 10 mg PO HS 07/27/22 07/27/22 History amLODIPine [Norvasc] 5 mg PO DAILY 07/27/22 07/27/22 History Allergies Allergy/AdvReac Type Severity Reaction Status Date / Time latex Allergy red skin Verified 07/27/22 10:44 morphine AdvReac Nausea Verified 07/27/22 10:44 pregabalin [From Lyrica] AdvReac Hallucinati Verified 07/27/22 10:44 ons Physical Exam Vitals: Vital Signs Temp Pulse Pulse Pulse Resp BP BP 07/28/22 07:00 97.3 F L 84 18 96/59 07/28/22 00:50 98.5 F 78 16 101/45 07/27/22 20:00 97.6 F 67 15 99/63 07/27/22 15:00 97.3 F L 68 18 96/57 07/27/22 14:46 97.9 F 69 20 111/68 Pulse Ox 07/28/22 07:00 95 07/28/22 00:50 93 L 07/27/22 20:00 96 07/27/22 15:00 96 07/27/22 14:46 97 Intake and Output 07/27/22 07/28/22 07/28/22 22:59 06:59 14:59 Intake Total 358 Balance 358 Intake: Oral 358 Other: Voiding Method Toilet Toilet # Voids 2 3 Weight 142.882 kg Patient is awake, comfortable, no acute distress Examination of the heart S1 and S2 Examination of the lungs bilateral breath sounds are heard Abdomen is soft nontender Examination of lower extremities shows trace edema bilaterally TOWER EXCAVATOR OPERATOR exam grossly intact Results - Lab Results Most recent lab results Calcium 9.4 mg/dL (8.7-10.3) 07/28/22 05:10 Phosphorus 3.5 mg/dL (2.4-5.1) 07/28/22 05:10 Magnesium 1.9 mg/dL (1.5-2.4) 07/28/22 05:10 07/28/22 05:10 07/28/22 12:13 Assessment and Plan Assessment: 1. 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 Previous UA April 2022 showed no proteinuria. Baseline creatinine appears to be around 2 mg/dL 2. Hyperkalemia associated with use of ISAAC inhibitor's and Aldactone in the setting of CK D. Continue to hold Aldactone and lisinopril for now. 3. Hypertension currently controlled 4. Type 2 diabetes maintained on metformin which we can continue for now 5. Coronary artery disease status post coronary stenting 6. Chronic A. fib maintained on liquids and metoprolol for rate control Plan: Repeat potassium Continue to hold Aldactone and lisinopril Consider adding no diuretics to help with hyperkalemia Patient is advised low potassium diet Follow-up as outpatient for CK D next Thank you for the consultation. We will continue to follow the patient with you during his hospitalization
[2022-07-28] MEDS: SODIUM CHLORIDE 0.9% 1,000 ML IV SCH (13:51)
[2022-07-28] MEDS: TAMSULOSIN 0.4 MG CAP.ER.24H PO SCH (13:53)
[2022-07-28] MEDS ORDERED: SODIUM ZIRCONIUM CYCLOSILICATE 10 GM PACKET PO ONE (14:00)
--- NOTE | 2022-07-28 14:14 | P.DS ---
Providers Date of admission: 07/27/22 11:28 Expected date of discharge: 07/28/22 Attending physician: Bairon Knutson MD Consults: 07/27/22 11:23 Consult Physician Urgent Consulting Provider: Shabana Jeffery Consult Reason/Comments: hyperkalemia Do you want consulting provider notified?: Yes Primary care physician: Gonzalo Mott MD Hospital Course: Discharge Diagnosis: Hyperkalemia, resolved. Lisinopril and Aldactone discontinued. Patient to also have repeat BMP to follow up on repeat potassium levels as well as renal functio n in 3 days. Stage IV chronic kidney disease. Patient to follow up outpatient with nephrology next week and was started on sodium bicarb 650 mg twice a day. Metabolic alkalosis, resolved. Hypomagnesemia, resolved. CAD status post stenting 1. Patient to continue home cardiac medication regimen with Eliquis, amlodipine, atorvastatin, fenofibrate, hydralazine, and metoprolol. Atrial fibrillation on anticoagulation with Eliquis Hypertension Hyperlipidemia Type II lfi-kyeweaf-twehrluii diabetes mellitus with hyperglycemia BPH. Continue home medication regimen with Flomax 0.4 mg daily. Hospital Course: Patient is a very pleasant 72-year-old male with a past medical history of CAD status post stenting 1, atrial fibrillation on anticoagulation with Eliquis, hypertension, hyperlipidemia, type II cfo-nzqcjoz-rwgjfcwll diabetes mellitus, BPH, and stage IV chronic kidney disease. He presented to the emergency department with a chief complaint of intermittent dizziness with abnormal labs. Patient reports intermittent dizziness with ambulation and looking up x one year. He states that he underwent a full workup by neurologist and flame channeler and nearly everything has been ruled out. Patient states that he does follow yearly with a cardiac monitor technician back in [place] but it has been one year since he has been seen by them. Patient reports he went to his PCPs office because he has been experiencing more frequent intermittent episodes of dizziness over the past year despite no one finding a diagnosis or treatment. Patient states he u nderwent a full workup complete with labs. He states he changed one of his medications and sent him back home. Patient states that today he received a phone call from his primary care doctor and instructed he needed to go straight to the emergency department because his potassium was too high. Patient currently reports he is feeling great. He is sitting in the chair and currently denies having any dizziness, lightheadedness, changes in vision or hearing, chest pain, palpitations, shortness of breath, nausea, vomiting, or experiencing any numbness/tingling/weakness/swelling in his extremities. Patient underwent full evaluation in the emergency department. Labs completed and reviewed. CBC showing normocytic anemia with hemoglobin of 12.8. BMP showing hyperkalemia with potassium of 6.0, hypocarbia with bicarb of 18, and elevated renal function consistent with stage IV CKD with BUN of 42, creatinine 2.12, and GFR of 30 (baseline creatinine appears to be 2). Magnesium also slightly low at 1.7. In the emergency department patient was given hyperkalemia cocktail consisting of regular insulin 10 units IVP, 1 amp D50, and Lokelma. EKG completed showing normal sinus rhythm at 73 bpm with T-wave inversion in leads I and aVL upon personal review and interpretation. Discussed patient's case, laboratory findings and EKG in depth with ED physician. Patient was admitted under our s ervices to observation unit with telemetry with consultation to nephrology. He was treated for his hyperkalemia. Labs were trended and renal function remains at baseline. Patient previously on both Aldactone and lisinopril while having advanced stage IV chronic kidney disease. Patient was educated that these medications have been discontinued and to not resume. Patient verbalized understanding. He was evaluated by cardiac monitor technician. Patient was very adamant about going home and a repeat potassium was completed resulting of 5.1 and again 5.6. Nephrology clearing patient for discharge to follow-up in the office next week. Patient provided with a prescription to have repeat BMP completed outpatient in 3 days with results to be sent to both PCP and cardiac monitor technician. Patient medically stable for discharge at this time. Physical exam: Vital signs reviewed and stable. General: Nontoxic, no distress and appears stated age. Derm: Skin warm and dry, normal coloration for ethnicity. Head: Atraumatic, normocephalic and symmetric. Eyes: EOMs intact, no lid lag, and anicteric sclera Mouth: no lip lesions, mucus membranes moist Cardiovascular: regular rate and rhythm with normal S1S2, no murmur, positive posterior tibial pulses bilaterally, and cap refill < 2 seconds. Lungs: Respirations even, regular, and unlabored on room air. Lungs CTA b ilaterally, no rhonchi, no rales, no wheezing, and no accessory muscle usage. Abdominal: soft, nontender to palpation, no guarding, no appreciable organomegaly Ext: ROM intact. No gross muscle atrophy, no edema, no contractures Neuro: Speech clear, face symmetrical and CN II-XII grossly intact with no noted focal neuro deficits Psych: Alert and oriented to person, place, time, and situation. Appropriate and pleasant affect. A total of 32 minutes of time were spent preparing this complex discharge summary. Pt was discharged on 07/28/22 at 2:10 PM. Patient was seen independently by Nurse Practitioner. This document was prepared using [employer] dictation software. Please allow for errors in paper products printer while rare they do occur. Martir Olivares NP rendered care for this patient independently, reviewed the findings and plan as documented in the note above. I did not physically speak with or examine the patient on this date. Patient Condition at Discharge: Stable Plan - Discharge Summary New Discharge Prescriptions: New Sodium Bicarbonate Tab 650 mg PO BID 30 Days #60 tab Continue Metoprolol Tartrate [Lopressor] 100 mg PO AC-BID Fenofibric Acid (Choline) [Trilipix] 135 mg PO DAILY Nitroglycerin Sl Tabs [Nitrostat] 0.4 mg SUBLINGUAL Q5M PRN PRN Reason: Chest Pain Niacin [Niaspan] 1,000 mg PO HS Tamsulosin [Flomax] 0.4 mg PO PC-LUNCH Atorvastatin [Lipitor] 40 mg PO HS Apixaban [Eliquis] 5 mg PO AC-BID hydrALAZINE HCL 25 mg PO AC-BID amLODIPine [Norvasc] 5 mg PO DAILY PARoxetine HCL [Paxil] 10 mg PO HS Discontinued lisinopriL 40 mg PO DAILY Spironolactone 25 mg PO DAILY No Action Omeprazole 40 mg PO AC-SUPPER Dulaglutide [Trulicity] 0.75 mg SQ WE metFORMIN HCL [Glucophage] 500 mg PO AC-BID Discharge Medication List Atorvastatin [Lipitor] 40 mg PO HS 09/19/15 [History] Fenofibric Acid (Choline) [Trilipix] 135 mg PO DAILY 09/19/15 [History] Metoprolol Tartrate [Lopressor] 100 mg PO AC-BID 09/19/15 [History] Niacin [Niaspan] 1,000 mg PO HS 09/19/15 [History] Nitroglycerin Sl Tabs [Nitrostat] 0.4 mg SUBLINGUAL Q5M PRN 09/19/15 [History] Tamsulosin [Flomax] 0.4 mg PO PC-LUNCH 09/19/15 [History] Apixaban [Eliquis] 5 mg PO AC-BID 12/27/21 [History] Omeprazole 40 mg PO AC-SUPPER 12/27/21 [History] hydrALAZINE HCL 25 mg PO AC-BID 12/27/21 [History] metFORMIN HCL [Glucophage] 500 mg PO AC-BID 12/27/21 [History] Dulaglutide [Trulicity] 0.75 mg SQ WE 07/03/22 [History] PARoxetine HCL [Paxil] 10 mg PO HS 07/27/22 [History] amLODIPine [Norvasc] 5 mg PO DAILY 07/27/22 [History] Sodium Bicarbonate Tab 650 mg PO BID 30 Days #60 tab 07/28/22 [Rx] Follow up Appointment(s)/Referral(s): Shabana Jeffery MD [STAFF PHYSICIAN] - 1 Week Gonzalo Mott MD [Primary Care Provider] - 1-2 days Ambulatory/Diagnostic Orders: Basic Metabolic Panel [LAB.AMB] Time Frame: 3 Days, Location: None Selected Patient Instructions/Handouts: Dialysis Diet (DC) Activity/Diet/Wound Care/Special Instructions: Activity: As tolerated. Take breaks as needed. Diet: Heart healthy and carb consistent diet. Avoid salts, or foods with hidden salts such as canned or boxed foods and frozen dinners. Extra salt makes your heart work harder and traps the fluid in your body for longer. Special Instructions: Take all of your medications as directed and remember to keep all of your doctor's appointments and follow-up as needed. Remember as we discussed, your lisinopril and spironolactone have been discontinued You need to follow-up outpatient to have your labs drawn in 3 days and will need to call Saturday morning to schedule appointment with cardiac monitor technician in 1 week. Thank you for allowing us to participate in your care, it was truly a pleasure having you for our patient!!! Discharge Disposition: HOME SELF-CARE
[2022-07-28 14:27] VITALS: BP 123/70; PULSE 72
== END 2022-07-28 14:25 | disposition home or self-care (01) ==
LOC: EC 09:54 → 6NMEDSUR 11:28
PROVIDERS: ADMIT Internal Medicine; ATTEND Internal Medicine
DX: E87.5 Hyperkalemia (principal); I12.9 Hypertensive chronic kidney disease with stage 1 through stage 4 chronic kidney disease, or unspecified chronic kidney disease; N18.4 Chronic kidney disease, stage 4 (severe); E11.22 Type 2 diabetes mellitus with diabetic chronic kidney disease; E87.3 Alkalosis; E83.42 Hypomagnesemia; I25.10 Atherosclerotic heart disease of native coronary artery without angina pectoris; Z95.5 Presence of coronary angioplasty implant and graft; Z79.01 Long term (current) use of anticoagulants; I48.91 Unspecified atrial fibrillation; E78.5 Hyperlipidemia, unspecified; N40.0 Benign prostatic hyperplasia without lower urinary tract symptoms; J44.9 Chronic obstructive pulmonary disease, unspecified; K21.9 Gastro-esophageal reflux disease without esophagitis; H91.90 Unspecified hearing loss, unspecified ear; M19.90 Unspecified osteoarthritis, unspecified site; I25.2 Old myocardial infarction; Z95.810 Presence of automatic (implantable) cardiac defibrillator; Z90.49 Acquired absence of other specified parts of digestive tract; Z98.84 Bariatric surgery status; Z87.891 Personal history of nicotine dependence; Z79.85 Long-term (current) use of injectable non-insulin antidiabetic drugs; Z79.84 Long term (current) use of oral hypoglycemic drugs; Z79.899 Other long term (current) drug therapy; Z88.5 Allergy status to narcotic agent; Z88.8 Allergy status to other drugs, medicaments and biological substances; Z91.040 Latex allergy status
CPT/HCPCS: 96376; 96375; 96361; 96374; 99284; 36415; 93005; 80053; 80048 ×2; 83735 ×2; 84100 ×2; 84132 ×2; 85025 ×2; G0378 ×2; J0611

== ENCOUNTER → 2022-07-30 | Outpatient (CLI) | payer MEDICARE ==
[2022-07-30 22:44] LABS: Anion Gap 10.1 mmol/L (10.00-18.00); BUN/Creat Ratio 13.14 Ratio (12.00-20.00); Blood Urea Nitrogen 22.6 mg/dL (9.0-27.0); Carbon Dioxide 25.6 mmol/L (20.0-27.5); Non-African American GFR(CKD) 38.9 (60.0-200.0); Potassium 5.5 mmol/L (3.5-5.5)
== END | disposition home or self-care (01) ==
LOC: LABWHC1 12:46
PROVIDERS: ATTEND Nurse Practitioner
DX: E87.5 Hyperkalemia (principal); N18.9 Chronic kidney disease, unspecified
CPT/HCPCS: 36415; 80048

== ENCOUNTER → 2022-08-01 | Outpatient (CLI) | payer MEDICARE ==
[2022-08-01 10:33] LABS: ALT 29 U/L (4-49); AST 26 U/L (17-59); African American GFR (CKD) 46 (>60 ml/min/1.73 sqM); Albumin/Globulin Ratio 1.4; Alkaline Phosphatase 41 U/L (38-126); Anion Gap 8 mmol/L; Blood Urea Nitrogen 20 mg/dL (9-20); Calcium 9.5 mg/dL (8.4-10.2); Carbon Dioxide 28 mmol/L (22-30); Chloride 103 mmol/L (98-107); Globulin 2.8 g/dL; Glucose 170 mg/dL (74-99); Magnesium 1.7 mg/dL (1.6-2.3); Non-African American GFR(CKD) 40 (>60 ml/min/1.73 sqM); Potassium 4.9 mmol/L (3.5-5.1); Sodium 139 mmol/L (137-145); Total Bilirubin 0.5 mg/dL (0.2-1.3); Total Protein 6.8 g/dL (6.3-8.2)
[2022-08-01 10:36] LABS: Ionized Calcium 5.3 mg/dL (4.5-5.3)
[2022-08-01 14:21] LABS: Basophils # (A) 0.05 X 10*3/uL (0.00-0.10); Basophils % (A) 0.8 %; Eosinophils # (A) 0.31 X 10*3/uL (0.04-0.35); HCT 38.2 % (39.6-50.0); HGB 12.1 g/dL (13.0-17.0); Immature Grans, Automated 2.1 %; Lymphocytes # (A) 1.83 X 10*3/uL (0.90-5.00); Lymphocytes % (A) 29.7 %; MCH 30.9 pg (27.0-32.0); MCHC 31.7 g/dL (32.0-37.0); MCV 97.4 fL (80.0-97.0); Mean Platelet Volume 11.4 fL (9.5-12.2); Monocytes # (A) 0.66 X 10*3/uL (0.20-1.00); Monocytes % (A) 10.7 %; NRBC Per 100 WBC 0 /100 WBCS (0.0-0.0); Neutrophils # (A) 3.19 X 10*3/uL (1.80-7.70); Neutrophils % (A) 51.7 %; Platelet Count 224 X 10*3/uL (140-440); RBC 3.92 X 10*6/uL (4.40-5.60); RDW 15.4 % (11.5-14.5); WBC 6.17 X 10*3/uL (4.50-10.00)
[2022-08-01 16:19] LABS: Chol/HDL Ratio 9.26 Ratio
== END | disposition home or self-care (01) ==
LOC: LABWHC1 09:15
PROVIDERS: ATTEND Internal Medicine
DX: E29.1 Testicular hypofunction (principal)
CPT/HCPCS: 36415; 80053; 80061; 82040; 82330; 83721; 83735; 84153; 84270; 84403; 85025

== ENCOUNTER → 2022-08-20 | Outpatient (CLI) | payer MEDICARE ==
--- NOTE | 2022-08-20 12:30 | CT ---
EXAMINATION TYPE: CT chest w con CT DLP: 710.4 mGycm, Automated exposure control for dose reduction was used. DATE OF EXAM: 08/20/2022 12:13 PM COMPARISON: Chest regress 07/19/2022, CT chest 05/08/2022, CT biopsy 07/03/2022 CLINICAL INDICATION:Male, 72 years old with history of R918; PHH, left lung mass TECHNIQUE: Multiple axial images were obtained through the chest following the administration of 80 c c of Isovue 300. FINDINGS: LUNGS/ PLEURA: No pleural effusion, pneumothorax, or focal consolidation. Increased size of left upp er lobe cavitary mass measuring 7.0 x 6.5 cm (series 4, 68), previously 5.7 x 4.5 cm. Increased size of superior segment left lower lobe spiculated pulmonary nodule measuring 3.1 x 2.4 cm (series 4, juanita ge 25), previously 2.6 x 2.0 cm. Marginal increase in size of right upper lobe groundglass opacities measuring grossly 5.5 x 4.4 cm (series 4, image 17), previously 4.3 x 3.7 cm. This extends towards th e pulmonary hilum. Mild centrilobular emphysematous changes. Linear consolidation identified within t he inferior aspect of the left upper lobe which is similar to prior exam. No new pulmonary nodules. AIRWAY: Patent and unremarkable.. HEART: Mildly prominent size and stable. No pericardial effusion moderate cortical calcifications. Le ft chest wall dual lead cardiac pacemaking device. MEDIASTINUM: No evidence of pathologic adenopathy. VASCULATURE: No aortic aneurysm. MUSCULOSKELETAL: No acute osseous abnormalities. No aggressive osseous lesion. Mild multilevel degene rative changes of the visualized spine. SOFT TISSUES/LYMPH NODES: Unremarkable. LOWER NECK: No significant findings. UPPER ABDOMEN: Small hiatal hernia with post surgical changes of the stomach. Postcholecystectomy. St able left renal cyst. IMPRESSION: 1. Increasing size of thick-walled cavitary lesion within the left upper lobe, spiculated nodule with in superior segment of the left upper lobe, and right upper lobe groundglass opacities from prior exa minations. Findings are again concerning for worsening malignancy. Correlation with previous biopsy r esults is recommended. 2. No pathologic adenopathy.
== END | disposition home or self-care (01) ==
LOC: RADCTMAIN 11:00
PROVIDERS: ATTEND Internal Medicine Critical Care Medicine
DX: R91.8 Other nonspecific abnormal finding of lung field (principal)
CPT/HCPCS: 82565; 84520; 71260; 36415; Q9967

== ENCOUNTER → 2022-08-30 | Outpatient (CLI) | payer MEDICARE ==
[2022-08-31 01:55] LABS: African American GFR (CKD) 55.8 (60.0-200.0); Anion Gap 11.7 mmol/L (10.00-18.00); BUN/Creat Ratio 12.64 Ratio (12.00-20.00); Blood Urea Nitrogen 18.2 mg/dL (9.0-27.0); Calcium 9.3 mg/dL (8.7-10.3); Carbon Dioxide 28.6 mmol/L (20.0-27.5); Non-African American GFR(CKD) 48.2 (60.0-200.0); Potassium 4.9 mmol/L (3.5-5.5)
== END | disposition home or self-care (01) ==
LOC: LABWHC1 11:56
PROVIDERS: ATTEND Nurse Practitioner Family
DX: N18.32 Chronic kidney disease, stage 3b (principal)
CPT/HCPCS: 36415; 80048

== ENCOUNTER 2022-09-07 11:55 | Day surgery (SDC) | payer MEDICARE ==
[~2022-09-07 11:55] MED LIST changes: -ALBUTEROL NEB (CONC) 2.5 MG/0.5 ML INHALATION ONE; +LACTATED RINGERS 1,000 ML IV SCH; -LIDOCAINE 2% (PF) 20 MG/ML 5 ML VIAL INHALATION ONE; -LIDOCAINE VISCOUS 300 MG/15 ML CUP MUCOUS MEM ONE; -SODIUM CHLORIDE 0.9% 1,000 ML IV SCH
[2022-09-07 12:51] LABS: Glucose,Whole Blood 155 mg/dL (70-110)
--- NOTE | 2022-09-07 13:00 | CT ---
EXAMINATION TYPE: CT chest wo con DATE OF EXAM: 09/07/2022 COMPARISON: 08/20/2022 HISTORY: ion chest CT DLP: 785 mGycm. Automated Exposure Control for Dose Reduction was Utilized. TECHNIQUE: CT scan of the thorax is performed without IV contrast. FINDINGS: LUNGS: No pleural effusion, pneumothorax, or focal consolidation. Increased size of left upper lobe c avitary mass measuring 7.5 x 6.5 cm, previously 7.0 x 6.5 cm. Increased size of superior segment left lower lobe spiculated pulmonary nodule measuring 3.1 x 2.4 cm is stable. Stable size of right upper lobe groundglass opacities measuring grossly 5.5 x 4.4 cm unchanged from p revious. . This extends towards the pulmonary hilum. There is peribronchial thickening of the left hilum with an area of consolidation extending into the left upper lobe which is stable from prior exam. Suspect there may be mild narrowing of the left uppe r lobe bronchus. Mild centrilobular emphysematous changes. Linear consolidation identified within the inferior aspect of the left upper lobe which is similar to prior exam. No new pulmonary nodules. MEDIASTINUM: Lack of IV contrast is noted to limit evaluation for mediastinal and especially hilar ad enopathy. There are no definitive greater than 1 cm hilar or mediastinal lymph nodes. No cardiomega ly or pericardial effusion is seen. Cardiac device is seen and there are coronary artery calcificatio ns. Heart is enlarged. Small hiatal hernia noted with evidence of previous gastric surgery. OTHER: Postcholecystectomy changes are noted there is hypertrophic and degenerative change of the spi ne. IMPRESSION: 1. Large cavitary thick-walled lesion left upper lobe now measures 7.5 x 6.5 cm and producing measure d 7.0 x 6.5 cm. 2. Spiculated mass left lower lobe measures 3.1 x 2.4 cm and is stable. 3. Groundglass area of consolidation right upper lobe measures 5.5 x 4.4 cm and stable. 4. Left pulmonary hilar area of consolidation with peribronchial thickening and consolidation extendi ng left upper lobe is stable.
[2022-09-07] MEDS ORDERED: LIDOCAINE 2% INJ 20 MG/ML (2 ML VIAL) ONE (13:50)
[2022-09-07] MEDS ORDERED: SUCCINYLCHOLINE CHLORIDE 200 MG/10 ML VIAL IV ONE (13:50)
[2022-09-07] MEDS ORDERED: MIDAZOLAM 2 MG/2 ML VIAL ONE (13:50)
[2022-09-07] MEDS ORDERED: ePHEDrine 50 MG/ML 1 ML VIAL ONE (13:50)
[2022-09-07] MEDS ORDERED: PHENYLEPHRINE-0.9% NACL SYG 1,000 MCG/10 ML SYRINGE ONE (13:50)
[2022-09-07] MEDS ORDERED: ROCURONIUM 10 MG/ML (5 ML VIAL) IV ONE (13:50)
[2022-09-07] MEDS ORDERED: fentaNYL (PF) 50 MCG/ML 2 ML AMP ONE (13:50)
[2022-09-07] MEDS ORDERED: PROPOFOL 10 MG/ML 20 ML VIAL IV ONE (13:50)
[2022-09-07] MEDS ORDERED: SUGAMMADEX SODIUM 200 MG/2 ML SDV IV ONE (13:50)
--- NOTE | 2022-09-07 15:35 | P.PCN ---
Date of Procedure: 09/07/22 Operative Findings: Preoperative Diagnosis: Left upper lobe cavitating mass Left lower lobe mass Postoperative Diagnosis: Left upper lobe cavitating mass Left lower lobe mass Procedure(s) Performed: Flexible bronchoscopy Robotic-assisted bronchoscopy and addition to radial ultrasound evaluation of the lung mass Robotic-assisted test monitor needle aspirate, transbronchial biopsies, transbronchial brushing of the left upper lobe mass in addition to a bronchioloalveolar lavage Robotic-assisted test monitor needle aspirate, transbronchial biopsies, transbronchial brushing of the left lower lobe mass in addition to a bronc hioloalveolar lavage Endobronchial ultrasound Endobronchial ultrasound-guided transbronchial needle aspirate of left upper lobe mass Anesthesia: GETA Surgeon: Hair Gallego MD Estimated Blood Loss (ml): 0 Pathology: other Condition: stable Disposition: same day Operative Findings: A physical exam was performed. Informed consent was obtained from the patient after explaining all the risks (pneumothorax, life threatening bleeding, infection and adverse effects due to medications), benefits and alternatives to the procedure which the patient appeared to understand and so stated. The patient was connected to the monitoring devices. General anesthesia was induced and the patient was intubated by anesthesia. A final timeout was performed and the procedure confirmed by the attending staff bronchoscopist. The bronchoscope was inserted and the airway examined. The flexible bronchoscope was removed and the robotic bronchoscope was inserted. Registration was completed. I next guided the robotic bronchoscope using the navigation system into the MARTHA cavitating lobe posterior segment segment. Once in proper position, the bronchoscope was frozen. The radial EBUS probe was placed through the bronchoscope and confirmed abnormal u/s images vs normal lung. A 21-gauge needle was placed through the working channel and under fluoroscopic guidance, we sampled the area thought to have the mass twice. We then used a cloud biopsy pattern with ultrasound confirmation for 4 additional passes with the needle. U/S evaluation was then used to reconfirm location. Forceps were next introduced through working channel and extended the appropriate distance and 3 transbronchial biopsies were performed using fluoroscopic guidance. The u/s probe was then reinserted to confirm location. When confirmed this process was repeated for a total of 6 transbronchial biopsies. After reassessment with EBUS, a brush was placed through the extendable working channel for 1 pass with fluoroscopic guidance. U/S evaluation was then used to confirm location. 40ml of saline was then instilled into the area of the lesion. The robotic bronchoscope was removed and the airway inspected with a flexible bronchoscope and 10 ml of effluent from the BAL was collected. I next guided the robotic bronchoscope using the navigation system into the LLL lobe posterior segment segment. Once in proper position, the bronchoscope was frozen. The radial EBUS probe was placed through the bronchoscope and confirmed abnormal u/s images vs normal lung. A 23-gauge needle was placed through the working channel and under fluoroscopic guidance, we sampled the area thought to have the mass twice. We then used a cloud biopsy pattern with ultrasound confirmation for 4 additional passes with the needle. U/S evaluation was then used to reconfirm location. Forceps were next introduced through working channel and extended the appropriate distance and 3 transbronchial biopsies were performed using fluoroscopic guidance. The u/s probe was then reinserted to confirm location. When confirmed this process was repeated for a total of 6 transbronchial biopsies. After reassessment with EBUS, a brush was placed through the extendable working channel for 1 pass with fluoroscopic guidance. U/S evaluation was then used to confirm location. 40ml of saline was then instilled into the area of the lesion. The robotic broncho scope was removed and the airway inspected with a flexible bronchoscope and 10 ml of effluent from the BAL was collected. The flexible bronchoscope was removed and the EBUS-TBNA bronchoscope was used to intubate the pateint through the ETT. An ultrasound examination identified all major landmarks was completed.. No evidence of any significant mediastinal lymphadenopathy. All of the mediastinal lymph nodes less than 5 mm in size. Note that the level of the left upper lobe bronchus, there was a bulge and there was evidence of some extrinsic compression. Ultrasound was placed and transbronchial needle aspirate using a 22-gauge needle. The patient was then extubated with the EBUS-TBNA bronchoscope and intubated with an Olympus IT bronchoscope without difficutly. The airways were inspected and cleared of secretions and blood. Fluoroscopic check for pneumothorax was negative upon completion of the procedure. There was 0 ml blood loss with the procedure. FINDINGS: 1.The airways appeared normal 2 Successful navigation, ultrasonographic identification, and biopsies of left upper lobe mass and left lower lobe mass 3 endobronchial ultrasound revealing no evidence of any mediastinal lymphadenopathy RECOMMENDATIONS: Await pathology and cytology results The referring physician will be alerted to the results when available. The patient was advised to follow up with the referring physician with the biopsy results Patient will be called with results.
[2022-09-07 15:52] VITALS: TEMP 97.2
[2022-09-07 16:08] VITALS: RESP 14
[2022-09-07 16:24] VITALS: BP 105/51; PULSE 72
--- NOTE | 2022-09-07 16:26 | XR ---
EXAMINATION TYPE: XR chest 1V DATE OF EXAM: 09/07/2022 4:05 PM COMPARISON: Chest radiographs from 06/25/2022 TECHNIQUE: XR chest 1V Frontal view of the chest. CLINICAL INDICATION:Male, 72 years old with history of post biopsy; FINDINGS: Lungs/Pleura: Left upper lung airspace opacities remain present. There is no evidence of pleural effu shira, or pneumothorax. Pulmonary vascularity: Unremarkable. Heart/mediastinum: Cardiomediastinal silhouette is unremarkable. Two lead cardiac conduction device o verlying the left hemithorax with lead tips projecting over the right ventricle and right atrium. Musculoskeletal: No acute osseous pathology. IMPRESSION: 1. No acute cardiopulmonary disease/process. No evidence for pneumothorax. 2. Persistent left upper lung airspace opacities. 3.
--- NOTE | 2022-09-07 16:26 | FL ---
Intraoperative/procedural fluoroscopic services were provided. Total fluoroscopy time is 3 minutes wi th a total of 2 submitted images to PACS. Please see the operative/procedural note for further detail s. DAP: 110.07
== END 2022-09-07 16:45 | disposition home or self-care (01) ==
LOC: ORWHC2ENDO 11:55
PROVIDERS: ATTEND Internal Medicine Critical Care Medicine
DX: C34.12 Malignant neoplasm of upper lobe, left bronchus or lung (principal); I25.10 Atherosclerotic heart disease of native coronary artery without angina pectoris; I48.0 Paroxysmal atrial fibrillation; I13.0 Hypertensive heart and chronic kidney disease with heart failure and stage 1 through stage 4 chronic kidney disease, or unspecified chronic kidney disease; I50.9 Heart failure, unspecified; N18.30 Chronic kidney disease, stage 3 unspecified; E78.5 Hyperlipidemia, unspecified; J44.9 Chronic obstructive pulmonary disease, unspecified; Z87.891 Personal history of nicotine dependence; E11.22 Type 2 diabetes mellitus with diabetic chronic kidney disease; K21.9 Gastro-esophageal reflux disease without esophagitis; Z79.01 Long term (current) use of anticoagulants; Z79.84 Long term (current) use of oral hypoglycemic drugs; Z79.899 Other long term (current) drug therapy; Z91.040 Latex allergy status; Z88.5 Allergy status to narcotic agent; Z88.8 Allergy status to other drugs, medicaments and biological substances; Z95.810 Presence of automatic (implantable) cardiac defibrillator; Z85.828 Personal history of other malignant neoplasm of skin; Z95.5 Presence of coronary angioplasty implant and graft; Z90.49 Acquired absence of other specified parts of digestive tract; Z98.0 Intestinal bypass and anastomosis status; I25.2 Old myocardial infarction; Z68.41 Body mass index [BMI] 40.0-44.9, adult
CPT/HCPCS: 31628; S2900; 31623; 31624; 31625; 31629; 31652; 71045; 71250; 87070; 87102; 87116; 87205; 87206; 88108; 88305; 88341; 88342

== ENCOUNTER → 2022-09-26 | Outpatient (CLI) | payer MEDICARE ==
--- NOTE | 2022-09-26 14:57 | CT ---
EXAMINATION TYPE: CT brain wo/w con DATE OF EXAM: 09/26/2022 COMPARISON: None. HISTORY: headaches, r/o mets CT DLP: 2749 mGycm Automated exposure control for dose reduction was used. CONTRAST: CT scan of the head is performed without and with IV Contrast, patient injected with 80 mL of Isovue 300. FINDINGS: Noncontrast images show no acute intracranial hemorrhage or midline shift. Mild to moderate ventricul ar and sulcal prominence. Mai-white matter differentiation is preserved. Postcontrast images show n o definitive enhancing intraparenchymal mass. The globes are intact and the visualized sinuses are cl ear. IMPRESSION: Mild to moderate diffuse cerebral atrophy. No abnormal enhancing intraparenchymal masses to suggest metastatic disease.
== END | disposition home or self-care (01) ==
LOC: RADCTMAIN 13:19
PROVIDERS: ATTEND Internal Medicine Hematology & Oncology
DX: Z03.89 Encounter for observation for other suspected diseases and conditions ruled out (principal); C34.12 Malignant neoplasm of upper lobe, left bronchus or lung; G31.9 Degenerative disease of nervous system, unspecified
CPT/HCPCS: 82565; 84520; 70470; 36415; Q9967

== ENCOUNTER → 2022-10-05 | Outpatient (CLI) | payer MEDICARE ==
--- NOTE | 2022-10-06 08:49 | PE ---
EXAMINATION TYPE: PET CT fusion skull to thigh DATE OF EXAM: 10/05/2022 CLINICAL INDICATION:Male, 72 years old with history of C34.12 lung ca; TECHNIQUE: Following the intravenous administration of 11.0 mCi of F-18 FDG, whole body images are performed from the skull base to the midthigh. Images are reviewed on the computer in the coronal, a xial, and sagittal planes. Reconstructed rotating images are created on independent workstation and reviewed on the computer. A non-contrast CT is performed in conjunction with the PET scan. Glucose level 194 mg/dL COMPARISON: CT None, PET/CT 12/29/2021, FINDINGS: Mediastinal SUV mean is 2.7. Hepatic parenchyma SUV mean is 1.4. SKULL BASE AND NECK: No suspicious FDG activity. CHEST, MEDIASTINUM, AND HILAR REGION: * Left upper lung mass with central cavitation measures 6.4 x 5.9 previously 5.4 x 4.5 cm and 4.7 x 4.1 cm which is increase in size from 12/29/2021 Max SUV 15.6, previously 8.8. * Enlarging smaller focus likely representing metastatic deposit in the superior segment of the left lower lung measuring 2.9 x 2.6 cm now with FDG activity max SUV 6.8 previously 2.2 * Groundglass opacities in the right upper lobe image 76 not significantly changed from prior. * No enlarged greater than 1 cm lymph nodes or lymph nodes with increased FDG activity identified. ABDOMEN AND PELVIS: No suspicious FDG activity. Physiologic uptake within the musculature of the butt ocks. OSSEOUS STRUCTURES: No suspicious FDG activity. OTHER CT: Cardiac conduction device with leads terminating in the right ventricle and right atrium. T he heart is mildly enlarged for size. Streaky atelectasis within the left lung not significantly keith ged from priors. The gallbladder is surgically absent. The prostate is enlarged measuring up to 6.2 c m in transverse dimension. There is intramuscular lipoma in the anterior right thigh compartment wan uring 5.3 x 3.2 cm with punctate calcification. Bilateral fatty changes of the inguinal canals. IMPRESSION: 1. Progression of disease with increasing left upper lung mass and suspected metastatic deposit in t he superior segment of the left lower lung. Elevated blood glucose limits evaluation for small metast atic deposits. This at no additional deposits aren't definitively visualized. 2. There remains no evidence for lymphadenopathy in this artifact limited and elevated blood glucose degraded exam.
== END | disposition home or self-care (01) ==
LOC: RADPETMAIN 06:47
PROVIDERS: ATTEND Internal Medicine Hematology & Oncology
DX: C34.12 Malignant neoplasm of upper lobe, left bronchus or lung (principal); R91.8 Other nonspecific abnormal finding of lung field; R73.9 Hyperglycemia, unspecified
CPT/HCPCS: 78815; A9552

== ENCOUNTER → 2023-09-10 | Outpatient (CLI) | payer MEDICARE ==
[2023-09-10 11:50] LABS: T4, Free (Free Thyroxine) 1.49 ng/dL (0.80-1.80)
[2023-09-10 12:54] LABS: Thyroid Peroxidase Antibodies <9.0 U/mL (0.0-33.0)
== END | disposition home or self-care (01) ==
LOC: LABWHC1 07:42
PROVIDERS: ATTEND Internal Medicine
DX: E05.90 Thyrotoxicosis, unspecified without thyrotoxic crisis or storm (principal)
CPT/HCPCS: 36415; 84432; 84439; 84443; 84445; 84480; 86376

== ENCOUNTER → 2023-09-11 | Outpatient (CLI) | payer MEDICARE ==
--- NOTE | 2023-09-11 16:39 | US ---
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 2.8 X 1.8 x 2.1 cm, mid lateral, solid or almost completely solid, isoechoic nodule, which is wi malik than tall, with smooth margins, without echogenic foci. LEFT: # of nodules measured on left: 1 1. 0.9 X 0.9 x 1.1 cm, mid mid, mixed cystic and solid, hypoechoic nodule, which is wider than tall , with smooth margins, without echogenic foci. ISTHMUS: # of nodules measured in the isthmus: 0 Bilateral neck scanned, no evidence of lymphadenopathy. IMPRESSION: 1. Right thyroid lobe 2.8 cm TR 3 nodule. Fine-needle aspiration is recommended. 2. Left thyroid lobe 1.1 cm TR 3 nodule. No follow-up is required.
== END | disposition home or self-care (01) ==
LOC: RADUSWWP 16:11
PROVIDERS: ATTEND Internal Medicine
DX: E04.2 Nontoxic multinodular goiter (principal); E05.90 Thyrotoxicosis, unspecified without thyrotoxic crisis or storm
CPT/HCPCS: 76536

== ENCOUNTER 2023-09-24 12:51 | Day surgery (SDC) | payer MEDICARE ==
[2023-09-24 13:30] VITALS: BP 129/79; PULSE 85; RESP 12; TEMP 97.7
--- NOTE | 2023-09-24 21:01 | US ---
EXAMINATION TYPE: US FNA thyroid first lesion DATE OF EXAM: 09/24/2023 2:37 PM CLINICAL INDICATION:Male, 73 years old with history of E04.1 NONTOXIC SINGLE THYROID NODULE; , thyroi d nodule. COMPARISON: 09/11/2023 ATTENDING: Dr. Felix Huynh PROCEDURE: Informed consent was obtained. The risks and benefits of the procedure were discussed with the patien t. The site was marked. Timeout procedure was performed Ultrasound imaging of the thyroid demonstrates right thyroid The patient was prepped, draped in the usual sterile fashion, and locally anesthetized with 1% lidoca ine. Five fine needle aspiration were then performed with a 25 gauge needle. Samples were sent to [facility] pathology department for further analysis. Patient tolerated the procedure without incident and wa s sent home in stable condition. IMPRESSION: Successful ultrasound guided fine needle aspiration.
== END 2023-09-24 14:45 | disposition home or self-care (01) ==
LOC: RADPROMAIN 12:51
PROVIDERS: ATTEND Internal Medicine
DX: E04.1 Nontoxic single thyroid nodule (principal); Z85.118 Personal history of other malignant neoplasm of bronchus and lung
CPT/HCPCS: 10005; 88173; 88305

== ENCOUNTER → 2023-09-27 | Outpatient (CLI) | payer MEDICARE ==
--- NOTE | 2023-09-29 08:52 | PE ---
EXAMINATION TYPE: PET CT fusion skull to thigh DATE OF EXAM: 09/27/2023 CLINICAL INDICATION:Male, 73 years old with history of C34.12 Lung ca; TECHNIQUE: Following the intravenous administration of 10.53 mCi of F-18 FDG, whole body images are performed from the skull base to the midthigh. Images are reviewed on the computer in the coronal, axial, and sagittal planes. Reconstructed rotating images are created on independent workstation and reviewed on the computer. A non-contrast CT is performed in conjunction with the PET scan. Glucose level 116 mg/dL CT DLP: 568 mGycm, Automated exposure control for dose reduction was used. COMPARISON: CT 05/08/2023, PET/CT 10/05/2022, FINDINGS: Mediastinal SUV mean is 1.8. Hepatic parenchyma SUV mean is 2.78. SKULL BASE AND NECK: No suspicious FDG activity. CHEST, MEDIASTINUM, AND HILAR REGION: * Left upper lung mass is new morphology in today's exam. Somewhat irregular lung tissue with a focu s of abnormal uptake measuring Max SUV 4.9 measuring up to 2.0 cm on PET imaging. This is not well ap preciated on CT imaging due to background of soft tissue within the lung. Previously this area was mo re masslike measuring 6.4 x 5.9 cm and Max SUV 15.6. Small area of uptake more anteriorly to this are a max SUV 2.5; as irregular shaped morphology possibly an infectious/inflammatory basis. * * Increasing uptake within the left pulmonary hilum max SUV 11.7, previously 2.7. Small area of upta ke more anteriorly this focus max SUV 2.5 * Changed morphology of the smaller focus likely in the superior segment of the left lower lung wan uring now with no nodules definitively visualized previously 2.9 x 2.6 cm now with FDG activity max S UV 6.8. * Groundglass opacities in the right upper lobe without increased metabolic uptake. * No enlarged greater than 1 cm lymph nodes or lymph nodes with increased FDG activity identified. ABDOMEN AND PELVIS: No suspicious FDG activity. Physiologic uptake within the musculature of the butt ocks. OSSEOUS STRUCTURES: No suspicious FDG activity. OTHER CT: Cardiac conduction device with leads terminating in the right ventricle and right atrium. T he heart is mildly enlarged for size. Streaky atelectasis within the left lung not significantly keith ged from priors. The gallbladder is surgically absent. The prostate is enlarged measuring up to 6.2 c m in transverse dimension. There is intramuscular lipoma in the anterior right thigh compartment wan uring 5.3 x 3.2 cm with punctate calcification. Bilateral fatty changes of the inguinal canals. IMPRESSION: There is increasing metabolic activity within the left pulmonary hilum lymph node concerning for prog ression of disease at this location. The left upper lung mass and right lower lung superior segment m asses have changed morphology with only a small focus of uptake within the dominant mass remaining pr esent. No additional lymph nodes more sites of metastatic disease visualized.
== END | disposition home or self-care (01) ==
LOC: RADPETMAIN 10:06
PROVIDERS: ATTEND Radiology Radiation Oncology
DX: C34.12 Malignant neoplasm of upper lobe, left bronchus or lung (principal); C34.32 Malignant neoplasm of lower lobe, left bronchus or lung; R91.8 Other nonspecific abnormal finding of lung field
CPT/HCPCS: 78815

== ENCOUNTER → 2023-12-10 | Outpatient (CLI) | payer MEDICARE ==
--- NOTE | 2024-01-02 16:34 | CT ---
Patient Donnie Worrell ID [id number] Order # Procedure CT CHEST WITHOUT EXAMINATION TYPE: CT chest w con CT DLP: 1106 mGycm, Automated exposure control for dose reduction was used. DATE OF EXAM: 12/18/2023 8:14 AM COMPARISON: THIS EXAM WAS READ DURING PACS DOWNTIME, NO PRIORS AVAILABLE. CLINICAL INDICATION: Dr. Huynh. C34.12 Lung CA. F/U lung CA. Patient states new lump on left upper arm. Opened pics to get as much as poss.. DLP: 1106 TECHNIQUE: Multiple axial images were obtained through the chest. Sagittal and coronal reformats were created for review. Contrast used: mL of (None if empty) Oral contrast used: (None if empty) FINDINGS: LUNGS/ PLEURA: Trace left pleural effusion with streaky atelectasis extending from the left pulmonary hilum towards the lateral pleural surface. AIRWAY: Patent and unremarkable. HEART: Size within normal limits. Cardiac conduction leads in the right atrium and right ventricle. MEDIASTINUM: No gross evidence of adenopathy. VASCULATURE: No aortic aneurysm. No filling defect and central vasculature to suggest pulmonary embo nic. MUSCULOSKELETAL: Moderate disc degeneration changes are present throughout the thoracolumbar spine. SOFT TISSUES/LYMPH NODES: Unremarkable. LOWER NECK: No significant findings. UPPER ABDOMEN: Gallbladder surgically absent. Postsurgical changes of gastric lumen. Evaluation of the left arm does not demonstrate an abnormality to correlate with patient's lump. No p alpable marker was placed. IMPRESSION: 1. Suspected Posttreatment changes of the left upper lung with consolidation likely representing ate lectasis extending from the hilum to the pleural surface laterally. No evidence for acute process. No evidence for lymphadenopathy. 2. No finding in/on the left arm within the [id number] to suggest abnormality. No palpable marker was placed.
== END | disposition home or self-care (01) ==
LOC: RADCTMAIN 10:05
PROVIDERS: ATTEND Internal Medicine Hematology & Oncology
DX: C34.12 Malignant neoplasm of upper lobe, left bronchus or lung (principal)
CPT/HCPCS: 82565; 84520; 71260; 36415; Q9967

== ENCOUNTER → 2024-01-13 | Outpatient (CLI) | payer MEDICARE ==
--- NOTE | 2024-01-13 16:22 | US ---
EXAMINATION TYPE: US extremity nonvasc mass LT DATE OF EXAM: 01/13/2024 COMPARISON: NONE CLINICAL INDICATION: Male, 73 years old with history of R22.32 LOCALIZED SWELLING MASS LUMP; Lump lef t upper arm since December TECHNIQUE: Multiple lees and color Doppler ultrasound images of the left upper arm soft tissues at t he patient's region of palpable abnormality were obtained. FINDINGS/IMPRESSION: There is a well-circumscribed homogeneous hypoechoic lesion within the soft tiss ues of the left upper arm measuring 4.6 x 1.2 x 3.3 cm. There are some internal striations identified which are similar to surrounding fat. This is approximately 8 mm from the surface of the skin. There is some central internal color flow identified. This is nonspecific but may represent a lipoma versu s other etiologies. Correlate clinically.
== END | disposition home or self-care (01) ==
LOC: RADUSWWP 16:01
PROVIDERS: ATTEND Internal Medicine
DX: R22.32 Localized swelling, mass and lump, left upper limb (principal)

== ENCOUNTER → 2024-01-14 | Outpatient (CLI) | payer MEDICARE ==
[2024-01-14 16:08] LABS: ALT 26 U/L (10-49); AST 27 U/L (14-35); Chol/HDL Ratio 7.08 Ratio; LDL Cholesterol,Calculated 51.5 mg/dL (0.0-131.0)
== END | disposition home or self-care (01) ==
LOC: LABWHC1 09:42
PROVIDERS: ATTEND Internal Medicine Interventional Cardiology
DX: E78.2 Mixed hyperlipidemia (principal)
CPT/HCPCS: 36415; 80061; 84450; 84460

== ENCOUNTER → 2024-03-04 | Outpatient (CLI) | payer MEDICARE ==
[2024-03-04 12:50] LABS: African American GFR (CKD) 54 (>60 ml/min/1.73 sqM); Blood Urea Nitrogen 22 mg/dL (9-20); Non-African American GFR(CKD) 47 (>60 ml/min/1.73 sqM)
--- NOTE | 2024-03-04 15:12 | CT ---
EXAMINATION TYPE: CT chest w con CT DLP: 640.20 mGycm, Automated exposure control for dose reduction was used. DATE OF EXAM: 03/04/2024 1:36 PM COMPARISON: CT chest 01/02/2024, 09/07/2022, 08/20/2022, PET/CT 09/27/2023, 10/05/2022 CLINICAL INDICATION:Male, 73 years old with history of C34.12 LUNG CANCER; PHH, Lung ca TECHNIQUE: Multiple axial images were obtained through the chest following the administration of 100 cc of Isovue 300. . Coronal and sagittal reformats reviewed. FINDINGS: LUNGS/ PLEURA: No pneumothorax. Marginal increase in small left pleural effusion. Similar reticular s carring within the right upper and midlung. Posttreatment changes of the left upper lung with wedge-s haped regions of consolidation and air bronchograms. There is increased soft tissue along the medial aspect measuring up to 3.5 cm abutting the mediastinum (series 3, image 28). Previously measured up t o 2.3 cm. Additional peripheral thickened region posteriorly in the left upper lung measuring up to 2 .7 cm (series 3, image 22). Additional soft tissue thickening along the periphery in the left upper l gladis. Mild centrilobular emphysematous changes. AIRWAY: Patent and unremarkable.. HEART: Mildly enlarged and stable. Trace pericardial effusion. Moderate cortical calcifications. Left chest wall dual lead cardiac pacemaking device. MEDIASTINUM: Development of mediastinal adenopathy with example including a right paratracheal 1.4 cm enlarged lymph node (series 3, image 21). Also involvement of right hilar 2.6 cm enlarged lymph node (series 3, image 33). VASCULATURE: No aortic aneurysm. MUSCULOSKELETAL: No acute osseous abnormalities. No aggressive osseous lesion. Mild multilevel degene rative changes of the visualized spine. SOFT TISSUES/LYMPH NODES: No axillary adenopathy. LOWER NECK: Stable right thyroid lobe hypodense 1.5 cm nodule. UPPER ABDOMEN: Small hiatal hernia with post surgical changes of the stomach. Postcholecystectomy. St able left renal cyst. Ventral epigastric wall fat filled hernia with defect measuring up to 6 mm. IMPRESSION: 1. Posttreatment changes of the left upper lung with increasing soft tissue nodularity along the post erior lateral aspect of the left upper lung and along the medial hilar aspect probably representing p rogression of disease. Consider further evaluation with PET/CT. 2. Increased mediastinal and right hilar adenopathy probably representing worsening metastasis. 3. Marginal increase in small left pleural effusion. [facility], , 03/04/2024 3:10 PM
== END | disposition home or self-care (01) ==
LOC: RADCTMAIN 11:51
PROVIDERS: ATTEND Radiology Radiation Oncology
CPT/HCPCS: 36415; 71260; 82565; 84520

== ENCOUNTER → 2024-03-19 | Outpatient (CLI) | payer MEDICARE ==
--- NOTE | 2024-03-22 21:42 | PE ---
EXAMINATION TYPE: PET CT fusion skull to thigh DATE OF EXAM: 03/19/2024 COMPARISON: CT chest 03/04/2024 Prior PET/CT: 09/27/2023 CLINICAL INDICATION: Male, 73 years old with history of C34.12 LUNG CANCER, TECHNIQUE: Following the intravenous administration of 10.83 mCi of F-18 FDG, whole body images are performed from the skull base to the midthigh. Images are reviewed on the computer in the coronal, a xial, and sagittal planes. Reconstructed rotating images are created on independent workstation and reviewed on the computer. A localization and attenuation correction CT is performed in conjunction with the PET scan. DLP: 1106.91 mGycm SCAN: Subsequent Blood glucose: 104 mg/dL Average Mediastinum SUV: 2.05 Average Liver SUV: 3.64 FINDINGS: NECK: No abnormal uptake THORAX: Marked uptake is within the posterior lateral left apex, image 79, SUV 6.87. Uptake is within the posterior left upper lobe mass image 88, SUV 8.8, posterior medial uptake at thi s level is 9.42. There is vague uptake within a small density within the right mid lung. Image 107, SUV 2.9 Punctate area of uptake within the superior mediastinum, image 80, has an SUV of 4.74. This could be related to a catheter or a metastatic lymph node. There is right paratracheal lymphadenopathy with marked uptake, image 89, SUV 8.49. Left perihilar uptake is present image 100, SUV 17.12 right hilar adenopathy is present image 102, SO V 7.03 ABDOMEN: Uptakes liver is heterogenous. There are couple of areas that are hyperintense and are suspi cious for metastatic disease, image 150 posterior right lobe 9.32 SUV, anterior right lobe liver imag e 150, SUV 11.13 additional uptake is scattered and punctate areas of hyperintensity. While the more larger near the caudate image 141 has an SUV of 7.35. PELVIS: No abnormal uptake OSSEOUS STRUCTURES: No abnormal uptake LOCALIZATION CT: Left lung mass is evident COMPARISON: The left perihilar area of uptake was present previously. Mild uptake is within the poste rior lung mass. Additional mediastinal uptake is new. Liver uptake appears to be an interval change IMPRESSION: 1. There is progression of a left hilar mass with radiotracer uptake and uptake within the posterior left upper lung field mass. 2. There are additional bilateral lung areas of uptake suspicious for metastatic disease. 3. Bilateral hilar uptake and pretracheal uptake compatible with metastatic disease to the hilum. 4. Heterogenous liver to focal areas of uptake suspicious for metastasis. Liver radiotracer very hete rogenous multiple small metastases are not excluded. [facility], , 03/22/2024 9:39 PM
== END | disposition home or self-care (01) ==
LOC: RADPETMAIN 07:06
PROVIDERS: ATTEND Radiology Radiation Oncology
DX: C34.12 Malignant neoplasm of upper lobe, left bronchus or lung (principal); R91.8 Other nonspecific abnormal finding of lung field; R93.7 Abnormal findings on diagnostic imaging of other parts of musculoskeletal system
CPT/HCPCS: 78815; A9552

== ENCOUNTER → 2024-03-20 | Outpatient (CLI) | payer MEDICARE ==
[2024-03-20 13:20] LABS: African American GFR (CKD) 54 (>60 ml/min/1.73 sqM); Blood Urea Nitrogen 17 mg/dL (9-20); Non-African American GFR(CKD) 47 (>60 ml/min/1.73 sqM)
--- NOTE | 2024-03-20 14:06 | CT ---
EXAMINATION TYPE: CT brain w con CT DLP: 1150.5 mGycm, Automated exposure control for dose reduction was used. DATE OF EXAM: 03/20/2024 1:57 PM COMPARISON: Head CT 09/27/2023, 10/05/2022, CT brain 09/26/2022. CLINICAL INDICATION:Male, 73 years old with history of C34.12 NEOPLASM OF UPPER LOBE, LEFT BRONCHUS/L SUKHDEEP; PHH, Dizziness x 2 years TECHNIQUE: Axial CT images of the brain were obtained after the uneventful administration of 80 cc of Isovue-[address] or more CT dose reduction strategies were utilized during this examina tion. Coronal and sagittal reformats reviewed. FINDINGS: Extra-axial spaces: No abnormal extra-axial fluid collections. Ventricular system: Within normal limits Cerebral parenchyma: No acute intraparenchymal hemorrhage or mass effect. The lees-white junction is well differentiated. Scattered hypoattenuating areas are seen within the periventricular white matte r. No abnormal enhancement is seen after the administration of intravenous contrast. Cerebellum: Unremarkable. Mass effect: No evidence of midline shift. Intracranial vasculature: Atherosclerotic calcifications of the intracranial vessels. Soft tissues: Normal. Calvarium/osseous structures: No depressed skull fracture. Paranasal sinuses and mastoid air cells: Clear. Visualized orbits: Bilateral aphakia IMPRESSION: 1. No acute intracranial process and no evidence to suggest intracranial mass/metastatic disease. 2. Nonspecific white matter changes, likely secondary to chronic small vessel ischemic disease. [facility], , 03/20/2024 2:04 PM
== END | disposition home or self-care (01) ==
LOC: RADCTMAIN 12:22
PROVIDERS: ATTEND Radiology Radiation Oncology
DX: C34.12 Malignant neoplasm of upper lobe, left bronchus or lung (principal); C34.32 Malignant neoplasm of lower lobe, left bronchus or lung; R90.82 White matter disease, unspecified; H27.03 Aphakia, bilateral
CPT/HCPCS: 82565; 84520; 70460; 36415; Q9967

== ENCOUNTER 2024-04-01 14:05 | Day surgery (SDC) | payer MEDICARE ==
[~2024-04-01 14:05] MED LIST changes: +LIDOCAINE 1% (10MG/ML) FOR IV START INTRADERMA PRN
[2024-04-01] MEDS: IV FLUID CONTINUATION 1,000 ML IV ONE (14:41)
[2024-04-01 14:44] VITALS: RESP 18; TEMP 98
[2024-04-01] MEDS: LACTATED RINGERS 1,000 ML IV SCH (14:47)
[2024-04-01 14:59] LABS: Glucose,Whole Blood 99 mg/dL (70-110)
[2024-04-01] MEDS ORDERED: LIDOCAINE 1% INJ 10MG/ML (20 ML MDV) ONE (15:32)
[2024-04-01] MEDS ORDERED: PROPOFOL 10 MG/ML 20 ML VIAL IV ONE (15:32)
[2024-04-01] MEDS ORDERED: fentaNYL (PF) 50 MCG/ML 2 ML AMP ONE (15:32)
[2024-04-01] MEDS ORDERED: PHENYLEPHRINE-0.9% NACL SYG 1,000 MCG/10 ML SYRINGE ONE (15:32)
[2024-04-01] MEDS ORDERED: NEOSTIGMINE 1 MG/ML 10 ML VIAL ONE (15:32)
[2024-04-01] MEDS ORDERED: SUCCINYLCHOLINE CHLORIDE 200 MG/10 ML VIAL IV ONE (15:32)
[2024-04-01] MEDS ORDERED: GLYCOPYRROLATE 0.2 MG/ML 2 ML VIAL ONE (15:32)
[2024-04-01] MEDS ORDERED: ROCURONIUM 10 MG/ML (5 ML VIAL) IV ONE (15:32)
[2024-04-01] MEDS ORDERED: MIDAZOLAM 2 MG/2 ML VIAL ONE (15:32)
[2024-04-01] MEDS: LACTATED RINGERS 1,000 ML IV ONE (16:48)
[2024-04-01 17:49] VITALS: BP 112/58; PULSE 70
--- NOTE | 2024-04-01 20:53 | P.PCN ---
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 Informed consent was obtained from the patient after explaining all the risks (pneumothorax, life threatening bleeding, infection and adverse effects due to medications), benefits and alternatives to the procedure which the patient appeared to understand and so stated. The patient was connected to the monitoring devices. General anesthesia was induced and the patient was intubated by anesthesia. A final timeout was performed and the procedure confirmed by the attending staff bronchoscopist. The bronchoscope was inserted and the airway examined. The flexible bronchoscopy revealed some narrowing in the left upper lobe bronchus. No endobronchial tumors identified. The expected airways including the trachea, bilateral mainstem bronchi, right upper lobe bronchus, right middle lobe bronchus, right lower lobe bronchus, left upper lobe bronchus and the left lower lobe bronchus and the various segments on the right and 8 segments on the left. Following that, the flexible bronchoscope was removed and the endoscopic ultrasound was inserted. Careful examination of the mediastinal lymph nodes was done. The patient had pathologically enlarged mediastinal lymph nodes at the level of right paratracheal station 4R, right hilar station 10R and left hilar station 10L lymph nodes. Using a 22-gauge VIZI shot needle, transbronchial needle aspirate of the various mediastinal abnormal lymph nodes was done and a total of 5 passes were obtained from each mediastinal station. No bleeding was encountered. The patient was then extubated with the EBUS-TBNA bronchoscope and intubated with an Olympus IT bronchoscope without difficutly. The airways were inspected and cleared of secretions and blood. No complications upon completion of the procedure. There was 0 ml blood loss with the procedure.
== END 2024-04-01 18:05 | disposition home or self-care (01) ==
LOC: ORWHC2ENDO 14:05
PROVIDERS: ATTEND Internal Medicine Critical Care Medicine
DX: C34.92 Malignant neoplasm of unspecified part of left bronchus or lung (principal); J44.9 Chronic obstructive pulmonary disease, unspecified; C44.92 Squamous cell carcinoma of skin, unspecified; I25.10 Atherosclerotic heart disease of native coronary artery without angina pectoris; I48.0 Paroxysmal atrial fibrillation; D75.1 Secondary polycythemia; N18.30 Chronic kidney disease, stage 3 unspecified; G47.33 Obstructive sleep apnea (adult) (pediatric); K21.9 Gastro-esophageal reflux disease without esophagitis; I25.2 Old myocardial infarction; I10 Essential (primary) hypertension; E78.5 Hyperlipidemia, unspecified; E11.9 Type 2 diabetes mellitus without complications; N42.9 Disorder of prostate, unspecified; M10.9 Gout, unspecified; M19.90 Unspecified osteoarthritis, unspecified site; H91.90 Unspecified hearing loss, unspecified ear; Z95.0 Presence of cardiac pacemaker; Z91.040 Latex allergy status; Z87.891 Personal history of nicotine dependence; Z88.8 Allergy status to other drugs, medicaments and biological substances; Z88.5 Allergy status to narcotic agent; Z79.02 Long term (current) use of antithrombotics/antiplatelets; Z79.84 Long term (current) use of oral hypoglycemic drugs; Z79.899 Other long term (current) drug therapy
CPT/HCPCS: 88305; 88342; 88341; 31653; J2250; J0330; J2710; J2003; J3010; J2704; J2371; J1596; 31633

== ENCOUNTER → 2024-04-15 | Outpatient (CLI) | payer MEDICARE ==
--- NOTE | 2024-04-16 08:46 | US ---
EXAMINATION TYPE: US thyroid st tissue head/neck DATE OF EXAM: 04/15/2024 COMPARISON: NONE CLINICAL INDICATION: Male, 74 years old with history of E04.1 Thyroid nodule; Thyroid nodule. Hx of l gladis CA. TECHNIQUE: Grayscale and color Doppler imaging of the thyroid gland. FINDINGS: GLAND SIZE: Right Lobe: 4.0 x 1.5 x 1.9 cm Overall Parenchyma: homogeneous Left Lobe: 3.5 x 1.4 x 1.5 cm Overall Parenchyma: homogeneous Isthmus Thickness: .3 cm NODULES RIGHT: # of nodules measured on right: 1 1. 3.1 X 1.6 x 1.3 cm, lower , solid or almost completely solid, hypoechoic nodule, which is wider than tall, with smooth margins, without echogenic foci. TR 4. This has been previously biopsied. Prior size: no previous. LEFT: # of nodules measured on left: 1 1. .9 X .8 x .9 cm, lower , mixed cystic and solid, hypoechoic nodule, which is wider than tall, wi th smooth margins, with echogenic foci. Prior size: No previous. ISTHMUS: # of nodules measured in the isthmus: 0 Bilateral neck scanned, no evidence of lymphadenopathy. IMPRESSION: Moderately suspicious nodule right lobe thyroid. Follow-up 1 year recommended. 2017 ACR TI-RADS LEVEL: TR-RADS 4 - Moderately Suspicious: Follow if > 1 cm, FNA if > 1.5 cm *Highest TI-RADS level nodule reported [email or web address] [facility], , 04/16/2024 8:44 AM
== END | disposition home or self-care (01) ==
LOC: RADUSWWP 12:52
PROVIDERS: ATTEND Internal Medicine
DX: E04.1 Nontoxic single thyroid nodule (principal); Z85.118 Personal history of other malignant neoplasm of bronchus and lung
CPT/HCPCS: 76536

== ENCOUNTER → 2024-05-28 | Outpatient (CLI) | payer MEDICARE ==
--- NOTE | 2024-05-31 14:16 | PE ---
EXAMINATION TYPE: PET CT fusion skull to thigh DATE OF EXAM: 05/28/2024 COMPARISON: CT chest 03/04/2024 Prior PET/CT: PET/CT 03/19/2024 CLINICAL INDICATION: Male, 74 years old with history of C34.12 LUNG CANCER, TECHNIQUE: Following the intravenous administration of 10.33 mCi of F-18 FDG, whole body images are performed from the skull base to the midthigh. Images are reviewed on the computer in the coronal, a xial, and sagittal planes. Reconstructed rotating images are created on independent workstation and reviewed on the computer. A localization and attenuation correction CT is performed in conjunction with the PET scan. DLP: 1252.79 mGycm SCAN: Subsequent Blood glucose: 99 mg/dL Average Mediastinum SUV: 2.33 Average Liver SUV: 3.46 FINDINGS: NECK: No abnormal uptake THORAX: Left suprahilar uptake is present with an SUV measuring 12.55, example image 102. There is an additional focus of radiotracer within the posterior density, image 101, SUV 12.81. Couple of additi onal small foci of focal uptake are present, example image 95 medially measuring SUV 11.91 with the 2 more lateral smaller nodules measuring 8.4 for an 8.07. Image 95. Small focus at the apex image 87 m easuring SUV 7.23 ABDOMEN: No abnormal uptake PELVIS: No suspicious peritoneal abnormality OSSEOUS STRUCTURES: Scattered mild increased uptake is present within osseous structures including th e bilateral femurs, scattered within the pelvis and within scattered lumbar spine. Some mild diffuse uptake may be within ribs. Some diffuse uptake appears to be within the bilateral humeri. Findings co uld be related to posttreatment changes. Small metastatic lesions however are not excluded and monito ring is recommended. LOCALIZATION CT: Small left pleural effusion is present. Minimal pericardial effusion may be present. Prostate is prominent. Lipoma within the anterior finding is present. COMPARISON: Previous mediastinal and right hilar uptake is not present on the current exam. Uptake wi thin the osseous structures is new. Left upper lobe uptake appears stable. Uptake in the more periphe ral apex may be slightly diminished from comparison IMPRESSION: 1. Stable appearance left suprahilar lung mass. 2. Similar to minimal improvement of more distant left apical uptake. 3. Mild diffuse and punctate uptake within multiple osseous regions more likely related to posttreatm ent changes. Monitoring however is recommended. [facility]: [id number], 05/31/2024 2:13 PM
== END | disposition home or self-care (01) ==
LOC: RADPETMAIN 10:53
PROVIDERS: ATTEND Internal Medicine Hematology & Oncology
DX: C34.12 Malignant neoplasm of upper lobe, left bronchus or lung (principal); R91.8 Other nonspecific abnormal finding of lung field
CPT/HCPCS: 78815; A9552

== ENCOUNTER → 2024-07-14 | Outpatient (CLI) | payer MEDICARE ==
[2024-07-14 14:54] LABS: Basophils # (A) 0.07 X 10*3/uL (0.00-0.10); Basophils % (A) 0.8 %; Eosinophils # (A) 0.04 X 10*3/uL (0.04-0.35); Eosinophils % (A) 0.5 %; HCT 37.3 % (39.6-50.0); HGB 11.7 g/dL (13.0-17.0); Lymphocytes # (A) 0.92 X 10*3/uL (0.90-5.00); MCH 28.9 pg (27.0-32.0); MCHC 31.4 g/dL (32.0-37.0); MCV 92.1 FL (80.0-97.0); Mean Platelet Volume 11.1 FL (9.5-12.2); Monocytes # (A) 0.98 X 10*3/uL (0.20-1.00); Monocytes % (A) 11.8 %; NRBC Per 100 WBC 0 X 10*3/uL (0.00-0.01); Neutrophils # (A) 5.94 X 10*3/uL (1.80-7.70); Neutrophils % (A) 71.3 %; Platelet Count 246 X 10*3/uL (140-440); RBC 4.05 X 10*6/uL (4.40-5.60); RDW 21.5 % (11.5-14.5); WBC 8.33 X 10*3/uL (4.50-10.00)
[2024-07-14 15:20] LABS: ALT 15 U/L (10-49); AST 20 U/L (14-35); Albumin 4.1 g/dL (3.8-4.9); Albumin/Globulin Ratio 1.64 Ratio (1.60-3.17); Alkaline Phosphatase 77 U/L (41-126); Blood Urea Nitrogen 16.1 mg/dL (9.0-27.0); Calcium 9.6 mg/dL (8.7-10.3); Carbon Dioxide 25.1 mmol/L (21.6-31.8); Chloride 104 mmol/L (96-109); Chol/HDL Ratio 5.44 Ratio; Globulin 2.5 g/dL (1.6-3.3); Glucose 115 mg/dL (70-110); LDL Cholesterol,Calculated 62.7 mg/dL (0.0-131.0); Magnesium 1.8 mg/dL (1.5-2.4); Potassium 4.5 mmol/L (3.5-5.5); Sodium 142 mmol/L (135-145); T4, Free (Free Thyroxine) 1.13 ng/dL (0.80-1.80); Total Bilirubin 0.4 mg/dL (0.3-1.2); Total Protein 6.6 g/dL (6.2-8.2)
[2024-07-14 15:21] LABS: Prostate Specific Antigen 2.95 ng/mL (0.000-6.500)
== END | disposition home or self-care (01) ==
LOC: LABWHC1 08:01
PROVIDERS: ATTEND Internal Medicine Interventional Cardiology
DX: I10 Essential (primary) hypertension (principal); E05.90 Thyrotoxicosis, unspecified without thyrotoxic crisis or storm; E11.40 Type 2 diabetes mellitus with diabetic neuropathy, unspecified; E78.2 Mixed hyperlipidemia
CPT/HCPCS: 36415; 80053; 80061; 82040; 83036; 83735; 84153; 84270; 84403; 84439; 84443; 85025

== ENCOUNTER → 2024-07-23 | Outpatient (CLI) | payer MEDICARE ==
--- NOTE | 2024-07-24 22:47 | PE ---
EXAMINATION TYPE: PET CT fusion skull to thigh DATE OF EXAM: 07/23/2024 CLINICAL INDICATION:Male, 74 years old with history of C34.12 LUNG CANCER; TECHNIQUE: Following the intravenous administration of 10.17 mCi of F-18 FDG, whole body images are performed from the skull base to the midthigh. Images are reviewed on the computer in the coronal, axial, and sagittal planes. Reconstructed rotating images are created on independent workstation and reviewed on the computer. A non-contrast CT is performed in conjunction with the PET scan. Glucose level 111 mg/dL CT DLP: 1125.09 mGycm, Automated exposure control for dose reduction was used. COMPARISON: CT 03/04/2024, 01/02/2024, 09/07/2022, 08/20/2022, PET/CT 05/28/2024, 03/19/2024, 09/27/2023, , MRI: None FINDINGS: Mediastinal SUV mean is 1.9. Hepatic parenchyma SUV mean is 3.3. SKULL BASE AND NECK: No suspicious radiotracer activity. CHEST, MEDIASTINUM, AND HILAR REGION: Similar left suprahilar masslike consolidation with air bronchograms and scattered FDG activity in th e periphery with a maximum SUV of 21.3. Previously 17.9. ABDOMEN AND PELVIS: No suspicious radiotracer activity. MUSCULOSKELETAL STRUCTURES: Redemonstration of focal radiotracer uptake within a left lateral L4-L5 osteophyte likely representin g inflammatory changes. Demonstrates a maximum SUV of 9.5. Previously 8.8 Several new subtle sclerotic foci within the thoracolumbar spine, right iliac bone, and left hemisacr um. Example includes a left hemisacral lesion demonstrating a maximum SUV of 6.0. OTHER CT: Bilateral aphakia. Right carotid bulb calcifications. Right thyroid lobe hypodense 1.2 cm n odule redemonstrated. Anterior left chest wall cardiac pacemaker device with leads terminating in the right atrium and right ventricle. Cardiomegaly with trace pericardial effusion. Mild coronary artery calcifications. Small left pleural effusion. Postsurgical changes of the stomach. Gallbladder is sky gically absent. Mild atherosclerotic calcification of the aorta and its branches. Postsurgical change s of the midline anterior abdomen wall. Prostatomegaly with the prostate gland measured a 6.5 cm. Rig ht renal exophytic lower pole 3.0 cm cyst. Intramuscular lipoma within the right femoral muscle. Dege nerative changes of the bilateral SI joint with anterior bridging. Multilevel degenerative changes of the spine. Mild centrilobular emphysematous changes. Anterior right upper lobe linear scarring. Bila teral shoulder arthropathy. IMPRESSION: Similar FDG avid left suprahilar masslike consolidation from prior PET/CT. However there are new smal l FDG avid subtle sclerotic lesions with the thoracolumbar spine, right iliac bone, and left hemisacr um. This is concerning for progression of disease. [facility], , 07/24/2024 10:44 PM
== END | disposition home or self-care (01) ==
LOC: RADPETMAIN 10:56
PROVIDERS: ATTEND Internal Medicine Hematology & Oncology
DX: C34.12 Malignant neoplasm of upper lobe, left bronchus or lung (principal); N28.1 Cyst of kidney, acquired; J90 Pleural effusion, not elsewhere classified; D17.9 Benign lipomatous neoplasm, unspecified
CPT/HCPCS: 78815; A9552

== ENCOUNTER → 2024-09-11 | Outpatient (CLI) | payer MEDICARE ==
[2024-09-11 12:22] LABS: African American GFR (CKD) 79 (>60 ml/min/1.73 sqM); Blood Urea Nitrogen 11 mg/dL (9-20); Non-African American GFR(CKD) 69 (>60 ml/min/1.73 sqM)
--- NOTE | 2024-09-11 15:54 | CT ---
EXAMINATION TYPE: CT thoracic spine w con DATE OF EXAM: 09/11/2024 1:09 PM COMPARISON: None. 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 Reconstructed images in the coronal and sagittal planes. FINDINGS: Visualized portions of the lungs is a 0.8 cm posterior medial right lung pleural-based nodule series 4 image 54 small left pleural effusion is present there is some consolidation along the posterior lat eral left lung. Left perihilar masslike area with air bronchograms is present Findings may be related to the patient's known lung cancer. There is a 0.7 cm sclerotic area within the right lateral T9 thoracic vertebral body. A T12 sclerotic area may also be present. Thoracic vertebral body heights are preserved. Large anterior vertebral body spurs are present throug h the thoracic spine. Some mild disc space narrowing may be in the upper thoracic spine. Remaining di sc heights are preserved. No spinal canal stenosis is present. IMPRESSION: 1. NO SUSPICIOUS LYTIC LESIONS WITHIN THE THORACIC SPINE. COUPLE OF SMALL VERTEBRAL BODY SCLEROTIC LE SIONS MAY BE PRESENT. 2. DEGENERATIVE TYPE DISC CHANGES THROUGH THE THORACIC SPINE. LARGE ANTERIOR VERTEBRAL BODY SPURS ARE ALSO PRESENT. 3. CHANGES WITHIN THE VISUALIZED LUNG SANCHEZ ESPECIALLY NOTED IN THE LEFT INFRAHILAR REGION AND THE S MALL LEFT PLEURAL EFFUSION LIKELY RELATED TO THE PATIENT'S KNOWN LUNG CANCER. [facility], , 09/11/2024 3:52 PM
== END | disposition home or self-care (01) ==
LOC: RADCTMAIN 11:46
PROVIDERS: ATTEND Internal Medicine Hematology & Oncology
DX: C34.91 Malignant neoplasm of unspecified part of right bronchus or lung (principal); C34.12 Malignant neoplasm of upper lobe, left bronchus or lung; D75.1 Secondary polycythemia; I10 Essential (primary) hypertension; M51.34 Other intervertebral disc degeneration, thoracic region; J90 Pleural effusion, not elsewhere classified
CPT/HCPCS: 82565; 84520; 72129; 36415; Q9967